=== PATIENT | male | born 1980 | race Caucasian/White ===

== ENCOUNTER 2017-11-19 09:30 | Emergency (ER) | payer MEDICAID ==
[~2017-11-19] VITALS: Ht 167.6 cm; Wt 63.5 kg
[~2017-11-19 09:30] MED LIST: ALPRAZOLAM1 MG PO; CARVEDILOL3.125 MG PO; CIPROFLOXACIN500 M1 PO; CLONIDINE0.1 PO; CYCLOPHOSPHAMID50 MG PO; DARVOCET-N 1001 EACH PO; ELOCON15 GM TP; IBUPROFEN 800800 MG PO; KEFLEX500 MG PO; LASIX 40 MG TAB40 M2 PO; LASIX 80 MG TAB80 MG PO; LEVAQUIN 500 M500 M2 PO; LORTAB 5 MG/5001 TAB PO; NEPHROCAPS SOFT1 CAP PO; NEURONTIN800 MG PO; NOHOMEMEDICATIONS; NORVASC5 MG PO; OXYCODONE HCL 55 MG PO; OXYCONTIN20 M1 PO; PHOSLO667 M1 PO; PHOSLO667 MG PO; POTASSIUM20 PO; PREDNISONE 20 M20 M1 PO; PREDNISONE 20 M20 MG PO; PROBIOTIC1 EAC1 PO; TRINATE TABLET1 TAB PO; TYLENOL325 MG PO; VIRT-CAPS SOFTGE1 MG PO; XANAX1 MG PO; ZYVOX600 MG PO
[2017-11-19] MEDS ORDERED: PHOS FLUR PO (09:38)
[2017-11-19] MEDS ORDERED: COREG CR10 MG PO (09:39)
[2017-11-19] MEDS ORDERED: VIRT-GARD TABL1 EACH PO (09:39)
[2017-11-19] MEDS ORDERED: KLOR-CON 1010 MEQ PO (09:39)
[2017-11-19 10:32] LABS: ABSOLUTE EOSINOPHILS 0.1 thou/uL (0.0-0.7); ABSOLUTE LYMPHOCYTES 1.8 thou/uL (0.8-5.3); ABSOLUTE MONOCYTES 0.2 thou/uL (0.0-1.2); ABSOLUTE NEUTROPHILS 4.1 thou/uL (1.6-8.1); BASOPHILS 0.6 %; HEMATOCRIT 43.3 % (42.0-52.0); HEMOGLOBIN 14.5 gm/dL (14.0-18.0); LYMPHOCYTES 28.2 %; MCH 29.9 pg (26.0-34.0); MCHC 33.5 g/dL (28.0-37.0); MCV 89.1 fL (80.0-100.0); MONOCYTES 3.5 %; MPV 8.3 fl. (7.2-11.1); NUCLEATED RBCS 0 /100WBC; PLATELET COUNT* 138 thou/uL (150-400); POLYS 65.7 %; RBC 4.86 mil/uL (4.50-6.00); RDW-CV 14.3 % (10.5-14.5); WBC 6.2 thou/uL (4.0-11.0)
[2017-11-19 10:39] LABS: CALCIUM 9.5 mg/dL (8.5-10.1); CREATININE 5.3 mg/dL (0.6-1.3); POTASSIUM 5.7 mmol/L (3.5-5.1)
[2017-11-19 10:41] LABS: APTT 26.4 Seconds (25.0-31.3); PROTIME 9.5 Seconds (9.20-11.50)
[2017-11-19 10:44] LABS: ALBUMIN 3.6 g/dL (3.4-5.0); TOTAL BILIRUBIN 0.2 mg/dL (<0.1-1.0); TOTAL PROTEIN 7.3 g/dL (6.4-8.2)
[2017-11-19 11:09] VITALS: BP 136/81
== END 2017-11-19 11:09 | disposition home or self-care (01) ==
LOC: M.ERS 09:30
PROVIDERS: Personal Emergency Response Attendant
DX: Z00.00 Encounter for general adult medical examination without abnormal findings (principal); G89.29 Other chronic pain; F17.210 Nicotine dependence, cigarettes, uncomplicated; N05.9 Unspecified nephritic syndrome with unspecified morphologic changes; Z86.2 Personal history of diseases of the blood and blood-forming organs and certain disorders involving the immune mechanism; Z88.5 Allergy status to narcotic agent

== ENCOUNTER 2017-12-08 08:40 | Emergency (ER) | payer MEDICAID ==
[~2017-12-08] VITALS: Ht 170.2 cm; Wt 63.5 kg
[~2017-12-08 08:40] MED LIST changes: +COREG CR10 MG PO; +KLOR-CON 1010 MEQ PO; +PHOS FLUR PO; +VIRT-GARD TABL1 EACH PO
[2017-12-08 09:13] LABS: ABSOLUTE EOSINOPHILS 0.1 thou/uL (0.0-0.7); ABSOLUTE LYMPHOCYTES 1.6 thou/uL (0.8-5.3); ABSOLUTE MONOCYTES 0.2 thou/uL (0.0-1.2); ABSOLUTE NEUTROPHILS 3.6 thou/uL (1.6-8.1); BASOPHILS 0.8 %; EOSINOPHILS 2.3 %; HEMATOCRIT 39.4 % (42.0-52.0); HEMOGLOBIN 13.3 gm/dL (14.0-18.0); LYMPHOCYTES 28.3 %; MCH 29.5 pg (26.0-34.0); MCHC 33.6 g/dL (28.0-37.0); MCV 87.7 fL (80.0-100.0); MONOCYTES 4.2 %; MPV 8.7 fl. (7.2-11.1); NUCLEATED RBCS 0 /100WBC; PLATELET COUNT* 190 thou/uL (150-400); POLYS 64.4 %; RBC 4.49 mil/uL (4.50-6.00); RDW-CV 15.2 % (10.5-14.5); WBC 5.6 thou/uL (4.0-11.0)
[2017-12-08 09:16] LABS: PROTIME 9.7 Seconds (9.20-11.50)
[2017-12-08 09:17] LABS: CALCIUM 8.9 mg/dL (8.5-10.1); CREATININE 4.8 mg/dL (0.6-1.3); POTASSIUM 4.2 mmol/L (3.5-5.1)
[2017-12-08 09:22] LABS: ALBUMIN 3.6 g/dL (3.4-5.0); MAGNESIUM 2.3 mg/dL (1.8-2.4); TOTAL BILIRUBIN 0.4 mg/dL (<0.1-1.0); TOTAL PROTEIN 7.4 g/dL (6.4-8.2)
[2017-12-08 09:36] VITALS: BP 142/84
== END 2017-12-08 09:36 | disposition home or self-care (01) ==
LOC: M.ERS 08:40
PROVIDERS: Emergency Medicine
DX: Z76.89 Persons encountering health services in other specified circumstances (principal); F17.210 Nicotine dependence, cigarettes, uncomplicated; Z88.5 Allergy status to narcotic agent

== ENCOUNTER 2018-02-04 10:12 | Inpatient (IN) | payer MEDICAID ==
[~2018-02-04] VITALS: Ht 170.2 cm; Wt 60.8 kg
[2018-02-04 10:38] VITALS: BP 111/64
[2018-02-04] MEDS ORDERED: KEFLEX500 M2 PO (10:42)
[2018-02-04] MEDS ORDERED: OXYCONTIN10 M1 PO (10:42)
[2018-02-04] MEDS ORDERED: XANAX 0.5 MG0.5 MG PO (10:42)
[2018-02-04 11:17] LABS: ABSOLUTE EOSINOPHILS 0.2 thou/uL (0.0-0.7); ABSOLUTE LYMPHOCYTES 1.1 thou/uL (0.8-5.3); ABSOLUTE MONOCYTES 0.4 thou/uL (0.0-1.2); ABSOLUTE NEUTROPHILS 3.4 thou/uL (1.6-8.1); BASOPHILS 0.8 %; EOSINOPHILS 3.9 %; HEMATOCRIT 27.4 % (42.0-52.0); HEMOGLOBIN 9.4 gm/dL (14.0-18.0); LYMPHOCYTES 21.2 %; MCH 31.8 pg (26.0-34.0); MCHC 34.5 g/dL (28.0-37.0); MCV 92.2 fL (80.0-100.0); MONOCYTES 7.1 %; MPV 8.4 fl. (7.2-11.1); NUCLEATED RBCS 0 /100WBC; PLATELET COUNT* 177 thou/uL (150-400); RBC 2.97 mil/uL (4.50-6.00); RDW-CV 13.6 % (10.5-14.5); WBC 5.1 thou/uL (4.0-11.0)
[2018-02-04 11:25] LABS: PROTIME 9.8 Seconds (9.20-11.50)
[2018-02-04 11:29] LABS: ANION GAP 7 mmol/L (7-16); BUN 26 mg/dL (7-18); CALCIUM 8.8 mg/dL (8.5-10.1); CHLORIDE 107 mmol/L (98-107); CO2 27 mmol/L (21-32); CREATININE 4.3 mg/dL (0.6-1.3); GLUCOSE 89 mg/dL (70-99); POTASSIUM 3.7 mmol/L (3.5-5.1); SODIUM 141 mmol/L (136-145)
[2018-02-04 11:38] LABS: ALBUMIN 3.3 g/dL (3.4-5.0); ALKALINE PHOSPHATASE 106 U/L (46-116); LIPASE 239 U/L (73-393); NT-PRO BRAIN NAT PEPTIDE 926 pg/mL (<300); SGOT 13 U/L (15-37); SGPT 16 U/L (30-65); TOTAL BILIRUBIN 0.2 mg/dL (<0.1-1.0); TOTAL PROTEIN 6.9 g/dL (6.4-8.2); TROPONIN-I LEVEL <0.06 ng/mL (<0.06)
[2018-02-04 15:10] VITALS: BP 111/66
[2018-02-04 15:30] VITALS: BP 116/75
--- NOTE | 2018-02-04 19:01 | NUR ---
RECEIVED REPORT AND ASSUMED CARE AT 1525. PT TRANSFERED FROM ER TO ROOM 211. VSS. CARDIAC MONITORING IN PLACE. ASSESSMENT COMPLETED CHARTED. PT REPORTS PAIN L CHEST AT SITE OF INFECTED TDC. CONSULTED NEPHROLOGY, VASCULAR, INFECTIOUS DISEASE. TDC REMOVED BY BACKUP ADMINISTRATOR AT BEDSIDE, LIDOCAINE ADMINISTERED TO SITE PRIOR TO PROCEDURE. CULTURE OF TDC AND MRSA OF NARES SENT TO LAB. CATH TIP SENT TO LAB FOR CULTURE. INSERTION OF NEW DIALYSIS CATH SCHEDULED FOR 02/05/18. CONSENT SIGNED AND ON CHART. PT UP AD AVERY IN ROOM. PT ON RA. PT WILL NEED TO BE NPO AT MIDNIGHT FOR PROCEDURE. CASE MANAGEMENT CONSULTED PER PT REQUEST R/T LIMITED RESOURCES R/T MANAGEMENT OF CARE FOR DISEASE PROCESS. DISCUSSED PLAN OF CARE WITH PT, VERBALIZED UNDERSTANDING. WILL CONTINUE TO MONITOR FOR REMAINDER OF SHIFT
[2018-02-04 20:00] VITALS: BP 129/82
[2018-02-05] VITALS: BP 111/64
[2018-02-05 03:00] VITALS: BP 104/65
--- NOTE | 2018-02-05 04:33 | NUR ---
RECIEVED REPORT AND ASSUMED CARE OF PATIENT AT 1930. ETCHER ELECTROLYTIC IN PLACE TRACING SR. ASSESSMENT AND VITALS COMPLETED CHARTED, VSS. PATIENT A&0X4. PATIENT HAD C/O PAIN IN BACK RATED 7/10 PARTIALLY RELIEVED WITH OXYCONTIN. PATIENT STATES THIS PAIN IS CHRONIC AND IS NEVER FULLY RELIEVED. PATIENT TOOK A SHOWER BEFORE BED AND HAS SLEPT A MAJORITY OF THIS SHIFT. PATIENT NPO FOR DIALYSIS CATHETER PLACEMENT TODAY. HOURLY ROUNDING OBSERVED. CALL LIGHT WITHIN REACH
[2018-02-05 05:44] LABS: HEMATOCRIT 25.6 % (42.0-52.0); HEMOGLOBIN 8.9 gm/dL (14.0-18.0); MCH 31.9 pg (26.0-34.0); MCHC 34.8 g/dL (28.0-37.0); MCV 91.6 fL (80.0-100.0); MPV 8.8 fl. (7.2-11.1); RBC 2.8 mil/uL (4.50-6.00); RDW-CV 13.6 % (10.5-14.5); WBC 3.7 thou/uL (4.0-11.0)
[2018-02-05 06:22] LABS: ALBUMIN 3.1 g/dL (3.4-5.0); CALCIUM 8.8 mg/dL (8.5-10.1); CREATININE 4.2 mg/dL (0.6-1.3); POTASSIUM 3.8 mmol/L (3.5-5.1); TOTAL BILIRUBIN 0.1 mg/dL (<0.1-1.0); TOTAL PROTEIN 6.1 g/dL (6.4-8.2)
--- NOTE | 2018-02-05 06:45 | CON ---
[address] [address] CONSULTATION Name: BUTTERFIELDEMMA JOE Room: [address] IN M.R.#: [id number] Admission: 02/04/18 Attend Phys: Shalom Nash MD Discharge: Date of : 81 Report #: [id number] THIS REPORT FOR: //name// CC: [facility] physician/PCP Shalom Nash DATE OF SERVICE: 02/04/2018 INFECTIOUS DISEASE CONSULTATION ATTENDING PHYSICIAN: Shalom Nash M.D. REASON FOR EVALUATION: Infected dialysis (tunneled catheter). HISTORY OF PRESENT ILLNESS: Chart reviewed, the patient examined. This is a 37-year old whom I am actually familiar with history of nephrotic syndrome and has been complicated by end-stage renal disease with requirement of hemodialysis, received thrice weekly. He has had history of infected catheters with Staphylococcus well as streptococcal septicemia, last known history was in July of 2017. He noted over the course of the last couple of weeks had increasing redness and subsequently developed pain over the site. There was some purulent drainage over the course of the last 24-48 hours, luckily there was not any fevers. Denies any chills, shakes or sweats. Appetite has been generally good. No pulmonary or gastrointestinal related complaints. Admitted post-dialysis due to concerns, removal of catheter, which is done at the bedside. Did receive a dose of ceftriaxone and vancomycin. ALLERGIES: To HYDROCODONE. MEDICATIONS: Oxycodone, promethazine, ondansetron, melatonin, diphenhydramine, vancomycin, and ceftriaxone. PAST MEDICAL HISTORY: History of nephrotic syndrome, glomerulonephritis, chronic back pain, chronic anemia, and anxiety. SOCIAL HISTORY: Nonsmoker. No ethanol. FAMILY HISTORY: Noncontributory. REVIEW OF SYSTEMS: As above. PHYSICAL EXAMINATION: GENERAL: He is pleasant, alert and cooperative, in ddal-na-msagvtfp distress. He is lucid, appears to be generally well nourished. VITAL SIGNS: Temperature 97.8, pulse 99, respirations 14 and blood pressure 111/66[place] [address] CONSULTATION Name: NGUYỄN BUTTERFIELDLAUREN HUYNH Room: [address]#: [id number] Admission: 02/04/18 Attend Phys: Shalom Nash MD Discharge: Date of : 81 Report #: [id number] SKIN: Warm and dry. No rashes. HEENT: Unremarkable. NECK: Supple. CHEST: There is a site of the catheter in the left chest, has been removed. LUNGS: Clear breath sounds. HEART: Regular. Borderline tachycardic. No appreciated murmur. ABDOMEN: Soft, nontender and nondistended. EXTREMITIES: No cyanosis. GENITOURINARY: Deferred. RECTAL: Deferred. RADIOLOGICAL DATA: Chest x-ray, no acute process. LABORATORY DATA: CBC: White count of 5.1, H and H 9.4 and 27.4, and platelets of 177. PT 9.8 and INR 1.0. Electrolytes: Sodium 141, potassium 3.7, chloride 107, bicarbonate 27, BUN and creatinine 26 and 4.3, and glucose of 89. Lipase of 239. LFTs unremarkable. Albumin of 3.3. Total protein 6.9. Lactic acid 0.6. ASSESSMENT AND PLAN: Infected tunneled dialysis catheter. We will await culture results including the tip and he has been dosed with empiric antimicrobial therapy, we would presume a gram-positive etiology and adjust therapy as required, now there will be a period and then replacement of temporary dialysis catheter. We will follow and see how he does clinically. <ELECTRONICALLY SIGNED> By: Reji Vazquez MD 02/05/18 0645 1714 0005Jofarooq Vazquez MD /nt
[2018-02-05 08:15] VITALS: BP 122/85
--- NOTE | 2018-02-05 12:23 | CON ---
[address] [address] CONSULTATION Name: SCOUTEMMA LINO Room: [address] IN M.R.#: [id number] Admission: 02/04/18 Attend Phys: Shalom Nash MD Discharge: Date of : 81 Report #: [id number] THIS REPORT FOR: //name// CC: [facility] physician/PCP Shalom Nash DICTATED BY: Meredith SERRATO DATE OF SERVICE: 02/04/2018 This is Meredith Maria [facility], dictating in collaboration with Dr. Edwin Vallejo. REASON FOR CONSULTATION: Infected tunneled dialysis catheter. HISTORY OF PRESENT ILLNESS: The patient is a 37-year-old male who is well known to our service with a history of end-stage renal disease. He underwent placement of a tunneled dialysis catheter in 06/2016 for the initiation of hemodialysis. He did have a left upper arm graft placed, he believes by Dr. Tariq, in 03/2016. He was seen by our service in 07/2017 for concerns for graft infection. He underwent excision of his left upper extremity brachial axillary arteriovenous graft with repair of the brachial artery on 08/07/[address] Terrence Durham. On 08/11/2017, he underwent placement of a left internal jugular tunneled dialysis catheter. He has been dialyzing via that catheter since that time. He reports he has been planning on getting in for vein mapping for fistula creation, but has not yet scheduled this as an outpatient. He reports that in the last couple of times of dialysis, the nurses noted some redness along his tunneled dialysis catheter site. He reports this has significantly worsened over the past 24 hours. He states he felt febrile, but did not take his temperature at home. He denies any nausea, vomiting or chills. He does dialyze on Tuesdays, and Saturdays. PAST MEDICAL HISTORY: 1. End-stage renal disease. 2. Chronic anemia. 3. Chronic back pain. 4. Membranoproliferative glomerulonephritis. PAST SURGICAL HISTORY: 1. Left upper extremity arteriovenous graft placement with subsequent resection from infection. 2. Tunneled dialysis catheter placement x 2. SOCIAL HISTORY: He is a former smoker. He denies any alcohol [place] [address] CONSULTATION Name: EMMA BUTTERFIELD Room: [address]#: [id number] Admission: 02/04/18 Attend Phys: Shalom Nash MD Discharge: Date of : 82 Report #: [id number] FAMILY HISTORY: Reviewed, noncontributory. ALLERGIES: HYDROCODONE. HOME MEDICATIONS: 1. Cephalexin 500 mg twice daily. 2. OxyContin 10 mg every 12 hours. 3. Xanax 0.5 mg every 8 hours as needed for anxiety. REVIEW OF SYSTEMS: A 12-point review of systems has been reviewed and is negative, except for the above mentioned in the history of present illness. PHYSICAL EXAMINATION: VITAL SIGNS: Temperature 36.6, heart rate 100, respiratory rate 16, blood pressure 111/64 and oxygen saturation 100% on room air. GENERAL: He is alert, oriented, in no acute distress. HEENT: Head is normocephalic, atraumatic. NECK: Supple, without jugular venous distention or carotid bruit. He does have a left internal jugular tunneled dialysis catheter intact. The overlying skin has erythema and edema. There is a scant amount of purulent drainage around the exit site of his tunneled dialysis catheter. HEART: Regular rate and rhythm. CHEST: Lungs are clear to auscultation bilaterally. ABDOMEN: Soft, nontender. Positive bowel sounds in all quadrants. EXTREMITIES: Palpable bilateral radial and pedal pulses. No significant edema noted in his extremities. NEUROLOGIC: Alert and oriented with no focal neurologic deficits. LABORATORY DATA: Hemoglobin 9.4, hematocrit 27.4, white blood cell count 5.1 and platelets 177,000. Sodium 141, potassium 3.7, chloride 107, CO2 of 27, BUN is 26, creatinine 4.6 and glucose is 89. ASSESSMENT AND PLAN: End-stage renal disease, on chronic hemodialysis via a left internal jugular tunneled dialysis catheter. He has an obvious infection of his tunneled dialysis catheter site. The catheter will be removed at the bedside this afternoon. Risks and benefits have been discussed with the patient. He is agreeable. We will plan for placement of a new tunneled dialysis catheter tomorrow with Dr. Edwin Vallejo for continuation of hemodialysis. N.p.o. after midnight. Continue IV antibiotics per Infectious Disease, hemodialysis per Nephrology. He needs to undergo vein mapping for evaluation for new arteriovenous fistula versus graft creation. [address] [address] CONSULTATION Name: EMMA BUTTERFIELD Room: [address] IN M.R.#: [id number] Admission: 02/04/18 Attend Phys: Shalom Nash MD Discharge: Date of : 82 Report #: [id number] Thank you for the opportunity to participate in the care of the patient. Please feel free to contact our office with any questions or concerns. <ELECTRONICALLY SIGNED> By: Edwin Vallejo DO 02/05/18 1223 1712 [id number] Vallejo DO /nt
--- NOTE | 2018-02-05 14:26 | EKG ---
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 02/05/18 1426 1054 1054 Nik Cartwright MD, [facility] /EPI
[2018-02-05 16:00] VITALS: BP 118/69
--- NOTE | 2018-02-05 16:46 | NUR ---
CM SPOKE TO THE PATIENT TO DISCUSS HOME SITUATION, DISCHARGE PLANNING, NEEDS, AND TO INFORM OF THE ROLE OF CM. PATIENT ALERT, ORIENTED, AND INDPENDENT WITH ADL'S. PATIENT RESIDES AT HOME WITH PARENT AND SON. PATIENT IS CURRENT WITH [facility] FOR HD. PATIENT USES 0 DME. PATIENT HAS NO HX OF HH OR SNF. CM WILL REMAIN AVIALABLE TO ASSIST AND FOLLOW NEEDED.
--- NOTE | 2018-02-05 18:33 | NUR ---
PT RESTING IN BED. PT REPORTS PAIN IN LEFT UPPER CHEST/NECK WHERE NEW TDC PLACED THIS AFTERNOON. PRN PAIN MEDICATION ORDERED AND ADMINISTERED. PT SCHEDULED TO HAVE DIALYSIS 02/06/18. PT UP AD AVERY IN ROOM. PT ON RA. BED IN LOWEST POSITION, CALL LIGHT WITHIN REACH. WILL CONTINUE TO [place] FOR REMAINDER OF THE SHIFT
[2018-02-05 20:00] VITALS: BP 110/60
[2018-02-06] VITALS: BP 117/72
--- NOTE | 2018-02-06 05:38 | NUR ---
PATIENT NOT PROGRESSING TOWARDS GOALS: PAIN IN RIGHT CHEST WHERE TUNNELED DIALYSIS CATHETER WAS INSERTED YESTERDAY HAS NOT BEEN EFFECTIVELY MANAGED WITH PRN MEDICATION. PATIENT STATED AT THE BEGINNING OF THE SHIFT THAT HE TOOK 30MG OXCODONE IR AT HOME SO THE 5MG WASN'T TOUCHING HIS PAIN. PHYSICIAN NOTIFIED AND DOSE INCREASED TO 10MG. PATIENT STATES THIS STILL HAS NOT HELPED. PATIENT HAS NOT BEEN ABLE TO SLEEP VERY WELL THROUGHOUT THE NIGHT. PATIENT ENCOURAGED TO REPOSITION FOR COMFORT. HOURLY ROUNDING OSBERVED. CALL LIGHT WITHIN REACH
[2018-02-06 05:51] LABS: HEMATOCRIT 27.2 % (42.0-52.0); HEMOGLOBIN 9.2 gm/dL (14.0-18.0); MCH 31.5 pg (26.0-34.0); MCHC 33.9 g/dL (28.0-37.0); MCV 92.8 fL (80.0-100.0); RBC 2.93 mil/uL (4.50-6.00); RDW-CV 13.7 % (10.5-14.5); WBC 3.9 thou/uL (4.0-11.0)
[2018-02-06 06:14] LABS: CALCIUM 8.8 mg/dL (8.5-10.1); CREATININE 4.3 mg/dL (0.6-1.3); MAGNESIUM 2.6 mg/dL (1.8-2.4); POTASSIUM 4.1 mmol/L (3.5-5.1)
[2018-02-06 07:49] VITALS: BP 113/71
[2018-02-06 08:42] LABS: URINE BILIRUBIN NEGATIVE (Negative); URINE BLOOD 1+ (Negative); URINE CLARITY CLEAR; URINE COLOR YELLOW; URINE GLUCOSE-RANDOM TRACE (Negative); URINE KETONES NEGATIVE (Negative); URINE LEUKOCYTES-REFLEX NEGATIVE (Negative); URINE NITRITE-REFLEX NEGATIVE (Negative); URINE PROTEIN 2+ (Negative); URINE UROBILINOGEN 0.2 E.U./dl (0.2-1.0)
[2018-02-06 09:17] LABS: BACTERIA-REFLEX None Seen /HPF (None Seen); COARSE GRANULAR CASTS 0-3 Few /LPF (None Seen); CRYSTALS None Seen /LPF (None Seen); HYALINE CASTS 0-3 Few /LPF (None Seen); SQUAMOUS NONE SEEN /LPF (0-3)
[2018-02-06 09:18] LABS: URINE RBC 3-10 Few /HPF (0-2); URINE WBC-REFLEX 0-5 Rare /HPF (0-5)
--- NOTE | 2018-02-06 09:39 | NUR ---
ASSUMED CARE OF PATIENT AFTER REPORT THIS MORNING. PATIENT AWAKE, ALERT, AND ORIENTED APPROPRIATELY. PHYSICAL ASSESSMENT COMPLETED AND CHARTED. COMPLAINED OF PAIN. DISCUSSED FREQUENCY AVAILABLE FOR PAIN MEDICATIONS. PATIENT STATED UNDERSTANDING. VITAL SIGNS STABLE. OXYGEN SATURATION WITHIN NORMAL LIMITS ON ROOM AIR. PATIENT TRANSFERS AND AMBULATES INDEPENDENTLY WITHOUT DIFFICULTY. DENIES NEEDS AT THIS TIME. IS WONDERING IF HE WILL HAVE DIALYSIS TODAY. CALL LIGHT WITHIN REACH. NURSING WILL CONTINUE TO MONITOR.
--- NOTE | 2018-02-06 18:13 | NUR ---
NO CHANGE IN PATIENT STATUS. HAD DIALYSIS TODAY. CUT SHORT DUE TO ISSUES WITH NEW DIALYSIS CATHETER. NEPHROLOGY AWARE. PATIENT REMAINS ALERT AND ORIENTED APPROPRIATELY. UP AD AVERY IN ROOM. GIVEN PRN MEDICATIONS FOR PAIN, SEE EMAR FOR DOCUMENTATION. DENIES NEEDS AT THIS TIME. CALL LIGHT WITHIN REACH. NURSING WILL CONTINUE TO MONITOR.
[2018-02-06 20:00] VITALS: BP 117/68
[2018-02-07] VITALS: BP 113/70
[2018-02-07 01:30] VITALS: BP 106/64
--- NOTE | 2018-02-07 07:38 | NUR ---
PATIENT REMAINS STABLE THROUGHOUT SHIFT. PATIENT NOT PROGRESSING TOWARDS GOAL: PAIN HAS BEEN UNRELIEVED WITH PRN MEDICATION, REPOSITIONING, AND RELAXATION TECHNIQUES. PATIENT STATES HE HAS NOT BEEN ABLE TO SLEEP THE PAST TWO NIGHTS DUE TO PAIN. HOURLY ROUNDING OBSERVED. CALL LIGHT WITHIN REACH
[2018-02-07 08:14] VITALS: BP 107/79
--- NOTE | 2018-02-07 08:37 | NUR ---
ASSUMED CARE OF PATIENT AFTER REPORT THIS MORNING. PATIENT AWAKE, ALERT, AND ORIENTED APPROPRIATELY. PHYSICAL ASSESSMENT COMPLETED AND CHARTED. VITAL SIGNS STABLE. OXYGEN SATURATION WITHIN NORMAL LIMITS ON ROOM AIR. PATIENT IS UP AD AVERY. USES CALL LIGHT APPROPRIATELY. DENIES NEEDS AT THIS TIME. CALL LIGHT WITHIN REACH. NURSING WILL CONTINUE TO MONITOR.
--- NOTE | 2018-02-07 13:16 | NUR ---
RECEIVED REPORT FROM KRISTAL AT 1306. PT TO BE TRANSFERRED FROM TELEMETRY TO ROOM 106.
--- NOTE | 2018-02-07 13:19 | NUR ---
TRANSFERRING PATIENT TO JOINT AND SPINE UNIT HE IS MED/SURG STATUS. REPORT CALLED AND GIVEN TO ROSALINO ESPINO. ALL QUESTIONS ANSWERED. PATIENT TRANSPORTED AT THIS TIME TO ROOM 106 VIA WHEELCHAIR.
[2018-02-07 13:30] VITALS: BP 119/69
--- NOTE | 2018-02-07 14:13 | NUR ---
PT ARRIVED TO 106 VIA W/C FROM TELE AT 1319. PT A&O X4, FRIENDLY, SMILING, TALKATIVE. UP INDEPENDENTLY. VSS ON RA, AFEBRILE, PAIN IN RIGHT SHOULDER/NECK AREA R/T NEW DIALYSIS CVC, TENDER, PAINFUL, NO S/S OF INFECTION. PT TO HAVE DIALYSIS TOMORROW AND POSSIBLE D/C HOME IF DIALYSIS IS SUCCESSFUL AND CVC WORKS PROPERLY. PT STILL PRODUCES URINE, URINAL PROVIDED TO MONITOR OUTPUT. RIGHT EJ CATH FOR DIALYSIS PLACED 02/04/18. PT REPORTS CHRONIC LOWER/LUMBAR BACK PAIN. HOURLY ROUNDING TO START, WILL CONTINUE TO MONITOR PT PROGRESS AND STATUS.
--- NOTE | 2018-02-07 15:47 | NUR ---
PT ASSESSMENT FROM TELEMETRY REVIEWED AND AGREED WITH BY THIS NURSE. PT SETTLED IN 106 AND STATES HE IS COMFORTABLE IN ROOM. VSS ON RA. PAIN TO BE MONITORED. WILL CONTINUE TO MONITOR PT STATUS.
[2018-02-07 17:23] VITALS: BP 127/84
[2018-02-07 20:00] VITALS: BP 124/80
--- NOTE | 2018-02-07 20:13 | NUR ---
BEDSIDE REPORT TO HEARING AID SPECIALIST FOR CONTINUED CARES. PT REMAINS STABLE ON RA. PT COOPERATIVE AND FRIENDLY. UP INDEPENDENTLY. DIALYSIS SCHEDULED FOR TOMORROW MORNING, FEBRUARY D/C HOME AFTERWARDS. HOURLY ROUNDING COMPLETED. PT PROGRESSING TOWARDS GOAL.
[2018-02-08 04:44] LABS: HEMATOCRIT 27.5 % (42.0-52.0); HEMOGLOBIN 9.4 gm/dL (14.0-18.0)
[2018-02-08 05:06] LABS: ALBUMIN 3.3 g/dL (3.4-5.0); CALCIUM 8.8 mg/dL (8.5-10.1); CREATININE 4.4 mg/dL (0.6-1.3); PHOSPHORUS* 4.1 mg/dL (2.5-4.9); POTASSIUM 4.3 mmol/L (3.5-5.1)
[2018-02-08 07:45] VITALS: BP 125/77
--- NOTE | 2018-02-08 08:04 | NUR ---
Alert and oriented x 4. Up independently. His L chest has healing dialysis cath area that had staph. RT chest has newe dialysis cath that is red and bruised and slightly red but from previous nurse and patient they say it's improved. He is in good spirits and is going to dialysis today. He had pain med x 1 for lumbar pain.
[2018-02-08] MEDS ORDERED: DICLOXACILLIN250 M1 PO (13:00)
[2018-02-08 13:02] VITALS: BP 125/77
[2018-02-08 13:05] VITALS: BP 125/77
[2018-02-08 13:24] VITALS: BP 125/77
--- NOTE | 2018-02-08 14:31 | NUR ---
PATIENT LEFT UNIT AT 1345. ALERT AND ORIENTED X4. UP AD AVERY DURING AMBULATION. IV DC'D. DENIES NEED FOR PAIN MEDICATION DURING THIS SHIFT. DENIES NAUSEA. PATIENT WAS OFF UNIT IN DIALYSIS MOST OF THE MORNING. DIALYSIS CATHETER IN PLACE AT SC, THERE IS SOME REDDNESS AND BRUISING AROUND CATHETER SITE. ALL PERSONAL ITEMS LEFT WITH PATIENT. DISCHARGE INSTRUCTIONS, PRESCRIPTIONS, AND NEW MEDICATION INFORMATION SENT WITH PATIENT. VSS ON ROOM AIR. HOURLY ROUNDS HAVE BEEN MAINTAINED WHILE ON UNIT. LEFT WITH GRANDMA VIA CAR.
[2018-02-08 14:37] VITALS: BP 125/77
--- NOTE | 2018-02-11 12:43 | OP ---
[address] [address] OPERATIVE REPORT Name: BUTTERFIELDEMMA JOE Room: [address] IN M.R.#: [id number] Admission: 02/04/18 Attend Phys: Shalom Nash MD Discharge: 02/08/18 Date of : 82 Report #: [id number] THIS REPORT FOR: //name// CC: [facility] physician/PCP Shalom Nash DATE OF SERVICE: 02/05/2018 PREOPERATIVE DIAGNOSES: End-stage renal disease, nephrotic syndrome. POSTOPERATIVE DIAGNOSES: End-stage renal disease, nephrotic syndrome. OPERATION: 1. Ultrasound-guided access to the right internal jugular vein. 2. Tunneled dialysis catheter placement. SURGEON: Edwin Vallejo DO. PLANT HEALTH MANAGER: None. ANESTHESIA: Sedation with local for 20 minutes at my discretion, monitoring all vitals. FLUIDS: Less than 100 crystalloid. BLOOD LOSS: 25 mL. IMPLANTS: A Bard Retro 19 cm tunneled dialysis catheter in the right IJ. SPECIMENS: None. COMPLICATIONS: None. FINDINGS: Ultrasound demonstrated the right internal jugular vein to be soft and compressible, suitable for access. The catheter was positioned in the right atrium SVC junction under fluoroscopic guidance. I aspirated and flushed well without issue. CLINICAL HISTORY: The patient is a 37-year-old man with end-stage renal disease from nephrotic syndrome, is currently dialyzing through a left IJ tunneled dialysis catheter. However, this became secondarily infected and required removal. He is in need of a new catheter for dialysis needs. DETAILS OF PROCEDURE: After informed consent was obtained, the patient was taken to the angio suite, placed on the angio bed in supine position. His right neck was prepped and draped in usual sterile fashion. A full timeout was [address] [address] OPERATIVE REPORT Name: BUTTERFIELDEMMA LOONEY Room: [address]#: [id number] Admission: 02/04/18 Attend Phys: Shalom Nash MD Discharge: 02/08/18 Date of : 82 Report #: [id number] performed identifying correct patient and procedure. Next, he was administered sedation by the nurse at my discretion for a total of 20 minutes. The skin and subcutaneous tissues and right neck were anesthetized with local anesthetic. Using ultrasound guidance, the right internal jugular vein was identified, was accessed with an 18 gauge needle. These images were preserved. Using Seldinger technique, a wire was passed under fluoroscopic guidance in the IVC. A small skin incision was made in the right neck. The sheath was then placed over the wire. A second wire was passed under fluoroscopic guidance into the IVC. The tract was then sterilely dilated. The catheter was then passed over the wire, the position of the right atrium SVC junction. The wires and stylets were removed. The right chest wall was anesthetized with local anesthetic, and a small skin incision was made. The tunneler was passed up to the right neck incision. The catheter was attached to the tunneler and tunneled under fluoroscopic guidance to ensure no kinks or twist. The catheter was then tailored to length and both ports were applied. Both ports aspirated and flushed well. Both ports were then packed with concentrated heparin. Catheter was then secured to the chest wall with 3-0 Monocryl suture, and the neck incision was closed with Monocryl suture. Sterile dressing was applied. All sponge, sharp and instrument counts reported correct x 2. He tolerated the procedure well and was transferred back to the recovery in stable condition. The catheter may be used immediately for dialysis needs. <ELECTRONICALLY SIGNED> By: Edwin Vallejo DO 02/11/18 1243 1423 [id number] Vallejo DO /nt
--- NOTE | 2018-02-14 08:58 | CON ---
[facility] [address] [place] [address] CONSULTATION Name: EMAM BUTTERFIELD Room: [address]#: [id number] Admission: 02/04/18 Attend Phys: Shalom Nash MD Discharge: 02/08/18 Date of : 82 Report #: [id number] THIS REPORT FOR: //name// CC: [facility] physician/PCP Shalom Nash DATE OF SERVICE: 02/04/2018 REQUESTING PHYSICIAN: Shalom Nash M.D. REASON FOR CONSULTATION: Assist in providing dialysis. HISTORY OF PRESENT ILLNESS: The patient is a very pleasant 37-year-old gentleman, with medical history significant for end-stage renal disease. He also had an infected graft removed from his left arm 6 months ago and has been undergoing dialysis via left internal jugular vein tunneled dialysis catheter. He was admitted today with a tunneled dialysis catheter infection. He states that he started having pain over it and purulent discharge. His last dialysis was on Thursday. PAST MEDICAL HISTORY: 1. End-stage renal disease. 2. History of nephrotic syndrome. 3. History of thrombocytopenia. 4. History infected left arm graft, status post removal 6 months ago. MEDICATIONS: Prior to admission reviewed. FAMILY HISTORY: Reviewed. SOCIAL HISTORY: Reviewed. PHYSICAL EXAMINATION: GENERAL: Awake, alert, oriented, in no acute distress. VITAL SIGNS: Reviewed. His temperature is 36.6 Celsius, blood pressure 111/66, heart rate 99. HEENT: Pupils are round. NECK: Supple. LUNGS: Clear. CARDIOVASCULAR: Regular rate. ABDOMEN: Soft. EXTREMITIES: Lower extremities, no edema. He has a left internal jugular vein tunneled dialysis catheter in place and there is redness over the tunnel and purulent discharge is expressed through the entry site. [address] [address] CONSULTATION Name: EMMA BUTTERFIELD Room: [address]#: [id number] Admission: 02/04/18 Attend Phys: Shalom Nash MD Discharge: 02/08/18 Date of : 82 Report #: [id number] ASSESSMENT AND PLAN: Infected dialysis catheter, needs to be removed because most likely he has tunneled ascites also infected. In this situation antibiotics usually are not helpful without removal of catheter. So the catheter will be removed and he will have new catheter placed on the other side. We will dialyze him tomorrow. There is no need for dialysis now. He is not fluid overloaded. He is not acidotic. His potassium is 3.7. He still makes a lot of urine. We will follow him with you. <ELECTRONICALLY SIGNED> By: Basilio Carranza MD 02/14/18 0858 1610 0448Alexandalma Carranza MD /MATT
== END 2018-02-08 13:45 | disposition home or self-care (01) | DRG 314 ==
LOC: M.ERS 10:12 → M.TBA-ER 11:47 → M.2W 15:25 → M.ORTHSURG 02-07 13:20
PROVIDERS: Family Medicine; Internal Medicine Nephrology; ADMIT Internal Medicine
PROC: 05PYX3Z Removal of Infusion Device from Upper Vein, External Approach (ICD-10-PCS; principal; 2018-02-04)
PROC: 05HM33Z Insertion of Infusion Device into Right Internal Jugular Vein, Percutaneous Approach (ICD-10-PCS; 2018-02-05)
PROC: B543ZZA Ultrasonography of Right Jugular Veins, Guidance (ICD-10-PCS; 2018-02-05)
PROC: 5A1D70Z Performance of Urinary Filtration, Intermittent, Less than 6 Hours Per Day (ICD-10-PCS; 2018-02-06)
DX: T82.7XXA Infection and inflammatory reaction due to other cardiac and vascular devices, implants and grafts, initial encounter (principal); A41.9 Sepsis, unspecified organism; N18.6 End stage renal disease; Y84.1 Kidney dialysis as the cause of abnormal reaction of the patient, or of later complication, without mention of misadventure at the time of the procedure; G89.29 Other chronic pain; M54.9 Dorsalgia, unspecified; F41.9 Anxiety disorder, unspecified; B95.61 Methicillin susceptible Staphylococcus aureus infection as the cause of diseases classified elsewhere; Z88.5 Allergy status to narcotic agent; Z79.899 Other long term (current) drug therapy; Y92.89 Other specified places as the place of occurrence of the external cause; Z23 Encounter for immunization

== ENCOUNTER 2018-03-11 20:25 | Emergency (ER) | payer MEDICAID ==
[~2018-03-11] VITALS: Ht 170.2 cm; Wt 63.5 kg
[~2018-03-11 20:25] MED LIST changes: +DICLOXACILLIN250 M1 PO; +KEFLEX500 M2 PO; +OXYCONTIN10 M1 PO; +XANAX 0.5 MG0.5 MG PO
[2018-03-11 20:41] VITALS: BP 130/89
[2018-03-11] MEDS ORDERED: PREDNISONE 10 M10 M1 PO (21:11)
[2018-03-11] MEDS ORDERED: VISTARIL 25 MG25 M1 PO (21:11)
== END 2018-03-11 21:17 | disposition home or self-care (01) ==
LOC: M.ERS 20:25
DX: T78.40XA Allergy, unspecified, initial encounter (principal); G89.29 Other chronic pain; M54.9 Dorsalgia, unspecified; F17.210 Nicotine dependence, cigarettes, uncomplicated; Z88.5 Allergy status to narcotic agent; Z88.1 Allergy status to other antibiotic agents; Z86.2 Personal history of diseases of the blood and blood-forming organs and certain disorders involving the immune mechanism; X58.XXXA Exposure to other specified factors, initial encounter

== ENCOUNTER 2018-03-22 12:40 | Emergency (ER) | payer MEDICAID ==
[~2018-03-22] VITALS: Ht 170.2 cm; Wt 65.8 kg
[~2018-03-22 12:40] MED LIST changes: +PREDNISONE 10 M10 M1 PO; +VISTARIL 25 MG25 M1 PO
[2018-03-22 13:38] LABS: ABSOLUTE BASOPHILS 0.1 thou/uL (0.0-0.2); ABSOLUTE EOSINOPHILS 0.1 thou/uL (0.0-0.7); ABSOLUTE LYMPHOCYTES 1.7 thou/uL (0.8-5.3); ABSOLUTE MONOCYTES 0.6 thou/uL (0.0-1.2); ABSOLUTE NEUTROPHILS 6.5 thou/uL (1.6-8.1); BASOPHILS 0.7 %; EOSINOPHILS 1.7 %; HEMATOCRIT 32.9 % (42.0-52.0); HEMOGLOBIN 11.3 gm/dL (14.0-18.0); LYMPHOCYTES 19.1 %; MCHC 34.4 g/dL (28.0-37.0); MCV 93.1 fL (80.0-100.0); MONOCYTES 6.4 %; MPV 8.8 fl. (7.2-11.1); NUCLEATED RBCS 0 /100WBC; PLATELET COUNT* 148 thou/uL (150-400); POLYS 72.1 %; RBC 3.54 mil/uL (4.50-6.00); WBC 8.9 thou/uL (4.0-11.0)
[2018-03-22 13:47] LABS: CALCIUM 8.4 mg/dL (8.5-10.1); CREATININE 4.1 mg/dL (0.6-1.3); POTASSIUM 3.3 mmol/L (3.5-5.1)
[2018-03-22 13:52] LABS: ALBUMIN 3.3 g/dL (3.4-5.0); TOTAL BILIRUBIN 0.3 mg/dL (<0.1-1.0); TOTAL PROTEIN 7.1 g/dL (6.4-8.2)
[2018-03-22 15:10] VITALS: BP 136/91
== END 2018-03-22 15:11 | disposition short-term general hospital (02) ==
LOC: M.ERS 12:40
PROVIDERS: Physician Assistant
DX: M79.601 Pain in right arm (principal); N18.6 End stage renal disease; G89.29 Other chronic pain; M54.9 Dorsalgia, unspecified; Z86.2 Personal history of diseases of the blood and blood-forming organs and certain disorders involving the immune mechanism; Z88.1 Allergy status to other antibiotic agents; Z88.5 Allergy status to narcotic agent

== ENCOUNTER 2018-04-03 11:21 | Inpatient (IN) | payer MEDICAID ==
[~2018-04-03] VITALS: Ht 167.6 cm; Wt 65.8 kg
[2018-04-03 11:38] VITALS: BP 125/65
[2018-04-03] MEDS ORDERED: OXYCONTIN10 M1 PO (11:42)
[2018-04-03 12:01] LABS: HEMATOCRIT 31.7 % (42.0-52.0); HEMOGLOBIN 10.7 gm/dL (14.0-18.0); MCH 31.5 pg (26.0-34.0); MCHC 33.7 g/dL (28.0-37.0); MCV 93.4 fL (80.0-100.0); MPV 7.8 fl. (7.2-11.1); NUCLEATED RBCS 0 /100WBC; PLATELET COUNT* 198 thou/uL (150-400); RDW-CV 13.7 % (10.5-14.5); WBC 13.5 thou/uL (4.0-11.0)
[2018-04-03 12:10] LABS: CALCIUM 8.7 mg/dL (8.5-10.1); CREATININE 3.3 mg/dL (0.6-1.3); POTASSIUM 4.7 mmol/L (3.5-5.1)
[2018-04-03 12:15] LABS: ALBUMIN 3.6 g/dL (3.4-5.0); TOTAL BILIRUBIN 0.4 mg/dL (<0.1-1.0); TOTAL PROTEIN 6.9 g/dL (6.4-8.2)
[2018-04-03 12:39] LABS: ABSOLUTE LYMPHOCYTES 1.4 thou/uL (0.8-5.3); ABSOLUTE MONOCYTES 0.4 thou/uL (0.0-1.2); ABSOLUTE NEUTROPHILS 11.7 thou/uL (1.6-8.1); PLATELET ESTIMATE ADEQUATE
[2018-04-03 14:11] VITALS: BP 123/70
[2018-04-03 16:28] VITALS: BP 124/73
[2018-04-03 20:30] VITALS: BP 127/75
[2018-04-04 00:17] VITALS: BP 123/76
[2018-04-04 04:00] VITALS: BP 101/60
[2018-04-04 04:24] LABS: HEMATOCRIT 27.8 % (42.0-52.0); HEMOGLOBIN 9.4 gm/dL (14.0-18.0); MCH 31.8 pg (26.0-34.0); MCHC 33.9 g/dL (28.0-37.0); MPV 8.4 fl. (7.2-11.1); RBC 2.96 mil/uL (4.50-6.00); RDW-CV 12.9 % (10.5-14.5); WBC 4.6 thou/uL (4.0-11.0)
[2018-04-04 04:44] LABS: CALCIUM 7.9 mg/dL (8.5-10.1); CREATININE 2.6 mg/dL (0.6-1.3); MAGNESIUM 2.1 mg/dL (1.8-2.4); POTASSIUM 3.8 mmol/L (3.5-5.1)
[2018-04-04 09:12] VITALS: BP 115/65
[2018-04-04 16:25] VITALS: BP 104/51
[2018-04-04 20:30] VITALS: BP 126/74
[2018-04-05 02:19] VITALS: BP 115/76
[2018-04-05 03:50] VITALS: BP 107/73
[2018-04-05 05:35] LABS: URINE BILIRUBIN NEGATIVE (Negative); URINE BLOOD 1+ (Negative); URINE CLARITY CLEAR; URINE COLOR YELLOW; URINE GLUCOSE-RANDOM TRACE (Negative); URINE KETONES NEGATIVE (Negative); URINE LEUKOCYTES-REFLEX NEGATIVE (Negative); URINE NITRITE-REFLEX NEGATIVE (Negative); URINE PROTEIN 1+ (Negative); URINE SPECIFIC GRAVITY <= 1.005 (1.005-1.030); URINE UROBILINOGEN 0.2 E.U./dl (0.2-1.0)
[2018-04-05 05:56] LABS: BACTERIA-REFLEX 1-9 Few /HPF (None Seen); CASTS None Seen /LPF (None Seen); MUCUS 4-6 Moderate strn/LPF (None Seen); SQUAMOUS 0-3 Few /LPF (0-3); URINE RBC 3-10 Few /HPF (0-2); URINE WBC-REFLEX 0-5 Rare /HPF (0-5)
[2018-04-05 05:57] LABS: CRYSTALS None Seen /LPF (None Seen)
[2018-04-05 06:39] LABS: HEMATOCRIT 28.6 % (42.0-52.0); HEMOGLOBIN 9.7 gm/dL (14.0-18.0); MCH 31.8 pg (26.0-34.0); MCHC 33.9 g/dL (28.0-37.0); MCV 94.1 fL (80.0-100.0); MPV 8.4 fl. (7.2-11.1); RBC 3.04 mil/uL (4.50-6.00); RDW-CV 13.4 % (10.5-14.5); WBC 3.9 thou/uL (4.0-11.0)
[2018-04-05 06:50] LABS: CALCIUM 8.5 mg/dL (8.5-10.1); CREATININE 3.3 mg/dL (0.6-1.3); MAGNESIUM 2.2 mg/dL (1.8-2.4); POTASSIUM 4.1 mmol/L (3.5-5.1); TOTAL BILIRUBIN 0.3 mg/dL (<0.1-1.0); TOTAL PROTEIN 6.1 g/dL (6.4-8.2)
[2018-04-05 08:00] VITALS: BP 115/80
[2018-04-05 16:15] VITALS: BP 125/79
--- NOTE | 2018-04-05 17:27 | 2DMMODE ---
[place] [address] 2 D/M-MODE ECHOCARDIOGRAM Name: EMMA BUTTERFIELD Room: [address] IN [facility]#: [id number] Admission: 04/03/18 Attend Phys: Hosea Sterling Discharge: Date of : 82 Date of Service: 04/05/18 1726 Report #: [id number] THIS REPORT FOR: //name// APPROVED REPORT Study performed: 04/05/2018 15:32:09 EXAM: Comprehensive 2D, Doppler, and color-flow Echocardiogram Patient Location: In-Patient Room #: 108 Status: routine BSA: 1.74 HR: 67 bpm BP: 107/73 mmHg Rhythm: NSR Other Information Study Quality: Excellent Indications Possible endocarditis 2D Dimensions LVEF(%): 53.78 (>50%) IVSd: 10.04 (7-11mm) LVOT Diam: 18.97 (18-24mm) LVDd: 40.09 mm PWd: 10.99 (7-11mm) Ascending Ao: 25.06 (22-36mm) LVDs: 29.12 (25-40mm) Aortic Root: 29.77 mm White's LVEF: 53.78 % Volumes Left Atrial Volume (Systole) LA ESV Index: 22.40 mL/m2 Aortic Valve AoV Peak Alireza.: 1.57 m/s AO Peak Gr.: 9.87 mmHg LVOT Max P.97 mmHg AO Mean Gr.: 6.20 mmHg LVOT Mean P.86 mmHg LVOT Max V: 1.58 m/s AO V2 VTI: 29.78 cm LVOT Mean V: 1.01 m/s JONATHAN (VTI): 2.71 cm2 LVOT V1 VTI: 28.55 cm Mitral Valve E/A Ratio: 1.62 [place] [address] 2 D/M-MODE ECHOCARDIOGRAM Name: EMMA BUTTERFIELD Room: [address] IN .R.#: [id number] Admission: 04/03/18 Attend Phys: Hosea Sterling Discharge: Date of : 82 Date of Service: 04/05/18 1726 Report #: [id number] MV Decel. Time: 240.35 ms MV E Max Alireza.: 1.13 m/s MV PHT: 69.70 ms MVA (PHT): 3.16 cm2 TDI E/Lateral E': 7.06 E/Medial E': 9.42 Medial E' Alireza.: 0.12 m/s Lateral E' Alireza.: 0.16 m/s Pulmonary Valve PV Peak Alireza.: 1.19 m/s PV Peak Gr.: 5.68 mmHg Left Ventricle The left ventricle is normal size. There is normal LV segmental wall motion. There is normal left ventricular wall thickness. Left ventricular systolic function is normal. The left ventricular ejection fraction is within the normal range. LVEF is 55-60%. The left ventricular diastolic function is normal. Right Ventricle The right ventricle is normal size. The right ventricular systolic function is normal. Atria The left atrium size is normal. The right atrium size is normal. Aortic Valve The aortic valve is normal in structure. No aortic regurgitation is present. There is no aortic valvular stenosis. Mitral Valve The mitral valve is normal in structure. There is no mitral valve regurgitation noted. No evidence of mitral valve stenosis. Tricuspid Valve The tricuspid valve is normal in structure. Unable to assess PA pressure. Trace tricuspid regurgitation. Pulmonic Valve Pulmonic valve is not well visualized. There is no pulmonic valvular regurgitation. Great Vessels The aortic root is normal in size. IVC [place] [address] 2 D/M-MODE ECHOCARDIOGRAM Name: EMMA BUTTERFIELD Room: [address] IN M.R.#: [id number] Admission: 04/03/18 Attend Phys: Hosea Sterling Discharge: Date of : 82 Date of Service: 04/05/18 1726 Report #: [id number] collapses with >50% inspiration Pericardium There is no pericardial effusion. <Conclusion> Left ventricular systolic function is normal. The left ventricular ejection fraction is within the normal range. <ELECTRONICALLY SIGNED> By: Sergo Araiza MD, [facility] 04/05/181725 25 25 Sergo Araiza MD, FAC /INF
[2018-04-05 21:00] VITALS: BP 120/71
[2018-04-05 21:11] LABS: HEPATITIS B SURFACE AG Negative (Negative)
[2018-04-06 08:58] VITALS: BP 114/69
[2018-04-06 16:00] VITALS: BP 106/63
[2018-04-06 20:00] VITALS: BP 107/67
[2018-04-07 08:30] VITALS: BP 100/61
[2018-04-07] MEDS ORDERED: ZYVOX600 MG PO (10:00)
[2018-04-07 13:20] VITALS: BP 100/61
[2018-04-07 15:36] VITALS: BP 100/61
[2018-04-07] MEDS ORDERED: VANCOMYCIN1 GM/1001 IV (15:54)
[2018-04-07 15:57] VITALS: BP 100/61
[2018-04-07 17:00] VITALS: BP 100/61
--- NOTE | 2018-04-14 08:58 | CON ---
[address] [address] CONSULTATION Name: NGUYỄN BUTTERFIELDLAUREN TORRESE Room: [address] IN M.R.#: [id number] Admission: 04/03/18 Attend Phys: Hosea Velasco, Discharge: 04/07/18 Date of : 82 Report #: [id number] THIS REPORT FOR: //name// CC: TORI physician/PCP Hosea Velasco DATE OF SERVICE: 04/04/2018 REASON FOR CONSULTATION: Cellulitis, right upper extremity AV graft. HISTORY OF PRESENT ILLNESS: The patient is a 37-year-old male well known to me for a left upper extremity AV fistula, which eventually failed due to infiltration at dialysis. The patient has recently undergone a right upper extremity AV graft by Dr. Tariq. He states that ever since that time, it has been red near the anastomosis. This has not been used for dialysis yet. He is currently using a tunneled dialysis catheter of his right internal jugular vein. He reports initially 2 days ago, he did have some fever but that was broke and he is overall feeling better and well. He is in no pain or symptoms related to his catheter. PAST MEDICAL HISTORY: Significant for end-stage renal disease, requiring hemodialysis and diabetes mellitus. PAST SURGICAL HISTORY: Significantly for fistulas with the fistula revisions and fistulogram. FAMILY HISTORY: Reviewed and noncontributory. SOCIAL HISTORY: The patient does have a history of smoking. Denies recreational drug abuse ever. He does use alcohol on occasion. ALLERGIES: HYDROCODONE CAUSES A RASH. REVIEW OF SYSTEMS: Twelve-point review of systems is negative except as in HPI. PHYSICAL EXAMINATION: VITAL SIGNS: Afebrile. Vital signs stable. T-max 36.7 degrees Celsius. GENERAL: The patient is in no acute distress, alert and oriented x 3. HEENT: Head is normocephalic, atraumatic. Extraocular muscles intact. Pupils equal, round, react to light and accommodation. Sclerae white, nonicteric. NECK: Supple. No thyromegaly. No mass, no lymphadenopathy. HEART: Regular rate and rhythm. LUNGS: Clear. ABDOMEN: Soft, nondistended, nontender to palpation. EXTREMITIES: Focused exam of his right upper extremity demonstrates an area of cellulitis and erythema overlying his graft [place] [address] CONSULTATION Name: EMMA BUTTERFIELD Room: [address]#: [id number] Admission: 04/03/18 Attend Phys: Hosea Velasco, Discharge: 04/07/18 Date of : 82 Report #: [id number] of his antecubital fossa. There is no significant fluctuance to this area. It is blanchable erythema. Does not appear to extend throughout the entire graft. His tunneled dialysis catheter appears to be intact without any surrounding erythema and is nontender to palpation. IMAGING: I reviewed his duplex, which does demonstrate a 3.8 x 1.2 cm area, which does not appear to be a pseudoaneurysm or any disruption of the fistula. His fluid collection is complex and likely represents hematoma. IMPRESSION AND PLAN: The patient is a 37-year-old male with end-stage renal disease requiring hemodialysis with a right upper extremity arteriovenous graft. There may be an infection of this hematoma near the anastomosis. I would recommend IV antibiotics at this time and this will likely need to be continued for several weeks at dialysis. If no systemic signs of infection and it continues to improve, his graft may be able to be salvaged. He also may require revision using Artegraft or CryoVein and attempted salvage if worsens or if he develops systemic symptoms. From my standpoint, he can be discharged if medically fit with close followup with either our group or Dr. Tariq who placed this graft in a week or 2. Thank you for allowing me to participate in this patient's care. Please do not hesitate to call should you have further questions or concerns. <ELECTRONICALLY SIGNED> By: Jeronimo Maxwell DO 04/14/18 0858 1537 1600Jeronimo Maxwell DO /nt
== END 2018-04-07 17:00 | disposition home or self-care (01) | DRG 314 ==
LOC: M.ERS 11:21 → M.TBA-ER 13:27 → M.ORTHSURG 13:27
PROVIDERS: Physician Assistant; ADMIT Family Medicine
PROC: 5A1D70Z Performance of Urinary Filtration, Intermittent, Less than 6 Hours Per Day (ICD-10-PCS; principal; 2018-04-07)
DX: T82.7XXA Infection and inflammatory reaction due to other cardiac and vascular devices, implants and grafts, initial encounter (principal); N18.6 End stage renal disease; L03.113 Cellulitis of right upper limb; N17.9 Acute kidney failure, unspecified; Z88.8 Allergy status to other drugs, medicaments and biological substances; F17.210 Nicotine dependence, cigarettes, uncomplicated; Z86.14 Personal history of Methicillin resistant Staphylococcus aureus infection; D63.1 Anemia in chronic kidney disease; E87.5 Hyperkalemia; G89.29 Other chronic pain; R74.0 Nonspecific elevation of levels of transaminase and lactic acid dehydrogenase [LDH]; Z99.2 Dependence on renal dialysis

== ENCOUNTER → 2018-05-04 | Outpatient (CLI) | payer MEDICAID ==
[~2018-05-04] MED LIST changes: +VANCOMYCIN1 GM/1001 IV; +XANAX 0.25 MG0.25 MG PO
[2018-05-04 12:40] LABS: CALCIUM 8.8 mg/dL (8.5-10.1); CREATININE 4.2 mg/dL (0.6-1.3)
== END ==
LOC: M.LAB 11:58
PROVIDERS: Internal Medicine Nephrology
DX: N18.6 End stage renal disease (principal)

== ENCOUNTER → 2018-07-21 | Outpatient (CLI) | payer MEDICAID ==
[2018-07-21 17:32] LABS: CALCIUM 9.8 mg/dL (8.5-10.1); CREATININE 3.1 mg/dL (0.6-1.3); POTASSIUM 3.8 mmol/L (3.5-5.1)
== END ==
LOC: M.LAB 16:56
PROVIDERS: Internal Medicine Nephrology
DX: N18.6 End stage renal disease (principal)

== ENCOUNTER 2018-07-24 10:34 | Emergency (ER) | payer MEDICAID ==
[~2018-07-24] VITALS: Ht 167.6 cm; Wt 59.0 kg
[~2018-07-24 10:34] MED LIST changes: -XANAX 0.25 MG0.25 MG PO
[2018-07-24 10:43] VITALS: BP 143/90
[2018-07-24] MEDS ORDERED: XANAX 0.25 MG0.25 MG PO (10:46)
== END 2018-07-24 11:00 | disposition left against medical advice (07) ==
LOC: M.ERS 10:34
DX: N18.6 End stage renal disease (principal); Z99.2 Dependence on renal dialysis; M54.9 Dorsalgia, unspecified; G89.29 Other chronic pain; F41.9 Anxiety disorder, unspecified; F17.210 Nicotine dependence, cigarettes, uncomplicated; Z88.0 Allergy status to penicillin; Z88.1 Allergy status to other antibiotic agents; Z88.5 Allergy status to narcotic agent

== ENCOUNTER → 2018-07-29 | Outpatient (CLI) | payer MEDICAID ==
[~2018-07-29] MED LIST changes: +XANAX 0.25 MG0.25 MG PO
[2018-07-29 10:30] LABS: CALCIUM 9.5 mg/dL (8.5-10.1); CREATININE 2.8 mg/dL (0.6-1.3); POTASSIUM 4.3 mmol/L (3.5-5.1)
== END ==
LOC: M.LAB 10:01
PROVIDERS: Internal Medicine Nephrology
DX: I12.0 Hypertensive chronic kidney disease with stage 5 chronic kidney disease or end stage renal disease (principal); N18.6 End stage renal disease; Z99.2 Dependence on renal dialysis

== ENCOUNTER → 2018-08-03 | Outpatient (CLI) | payer MEDICAID ==
[2018-08-03 11:28] LABS: CALCIUM 8.9 mg/dL (8.5-10.1); CREATININE 3.1 mg/dL (0.6-1.3); POTASSIUM 3.8 mmol/L (3.5-5.1)
== END ==
LOC: M.LAB 10:55
PROVIDERS: Internal Medicine Nephrology
DX: I12.0 Hypertensive chronic kidney disease with stage 5 chronic kidney disease or end stage renal disease (principal); N18.6 End stage renal disease; Z99.2 Dependence on renal dialysis

== ENCOUNTER 2018-10-29 12:43 | Inpatient (IN) | payer MEDICARE, MEDICAID ==
[~2018-10-29] VITALS: Ht 167.6 cm; Wt 61.2 kg
[2018-10-29 12:55] VITALS: BP 147/95
[2018-10-29 13:46] LABS: ABSOLUTE EOSINOPHILS 0.1 thou/uL (0.0-0.7); ABSOLUTE MONOCYTES 0.6 thou/uL (0.0-1.2); ABSOLUTE NEUTROPHILS 6.2 thou/uL (1.6-8.1); BASOPHILS 0.4 %; EOSINOPHILS 1.1 %; HEMATOCRIT 40.6 % (42.0-52.0); HEMOGLOBIN 13.8 gm/dL (14.0-18.0); LYMPHOCYTES 12.6 %; MCH 31.3 pg (26.0-34.0); MCHC 34.1 g/dL (28.0-37.0); MONOCYTES 8.1 %; MPV 9.4 fl. (7.2-11.1); NUCLEATED RBCS 0 /100WBC; PLATELET COUNT* 139 thou/uL (150-400); POLYS 77.8 %; RBC 4.42 mil/uL (4.50-6.00); RDW-CV 12.4 % (10.5-14.5); WBC 7.9 thou/uL (4.0-11.0)
[2018-10-29 14:05] LABS: CALCIUM 9.3 mg/dL (8.5-10.1); CREATININE 3.6 mg/dL (0.6-1.3)
[2018-10-29 14:10] LABS: ALBUMIN 3.5 g/dL (3.4-5.0); TOTAL BILIRUBIN 0.3 mg/dL (<0.1-1.0); TOTAL PROTEIN 7.5 g/dL (6.4-8.2)
[2018-10-29 14:34] LABS: URINE BILIRUBIN NEGATIVE (Negative); URINE BLOOD 3+ (Negative); URINE CLARITY CLEAR; URINE COLOR YELLOW; URINE GLUCOSE-RANDOM NEGATIVE (Negative); URINE KETONES NEGATIVE (Negative); URINE LEUKOCYTES-REFLEX NEGATIVE (Negative); URINE NITRITE-REFLEX NEGATIVE (Negative); URINE PROTEIN 2+ (Negative); URINE UROBILINOGEN 0.2 E.U./dl (0.2-1.0)
[2018-10-29 14:42] LABS: AMP/METHAMP Negative (Negative); BARBITURATES Negative (Negative); BENZODIAZEPINES POSITIVE (Negative); COCAINE Negative (Negative); METHADONE Negative (Negative); OPIATES POSITIVE (Negative); PCP Negative (Negative); THC Negative (Negative)
[2018-10-29 14:52] LABS: BACTERIA-REFLEX None Seen /HPF (None Seen); CASTS None Seen /LPF (None Seen); CRYSTALS None Seen /LPF (None Seen); SQUAMOUS 0-3 Few /LPF (0-3); URINE RBC >20 Many /HPF (0-2); URINE WBC-REFLEX None Seen /HPF (0-5); YEAST-REFLEX Present (None Seen)
[2018-10-29 15:06] VITALS: BP 147/95
--- NOTE | 2018-10-29 16:00 | NUR ---
ADMIT NOTE - PT ADMITTED TO 304 WITH RIGHT UPPER ARM CELLULITIS FROM OLD AV FISTULA. IV PRESENT IN L AC 20G. ORIENTED TO PHONE AND CALL LIGHT SYSTEM. WILL CONTINUE TO MONITOR.
== END 2018-10-29 19:30 | disposition left against medical advice (07) | DRG 602 ==
LOC: M.ERS 12:43 → M.TBA-ER 13:18 → M.3W 15:03
PROVIDERS: Physician Assistant; ADMIT Internal Medicine
DX: L03.113 Cellulitis of right upper limb (principal); N18.6 End stage renal disease; N04.9 Nephrotic syndrome with unspecified morphologic changes; N17.9 Acute kidney failure, unspecified; F17.210 Nicotine dependence, cigarettes, uncomplicated; Z53.21 Procedure and treatment not carried out due to patient leaving prior to being seen by health care provider; F41.9 Anxiety disorder, unspecified; G89.29 Other chronic pain; M54.9 Dorsalgia, unspecified; Z88.6 Allergy status to analgesic agent; Z88.1 Allergy status to other antibiotic agents; Z88.0 Allergy status to penicillin; Z88.8 Allergy status to other drugs, medicaments and biological substances

== ENCOUNTER → 2019-01-27 | Outpatient (CLI) | payer MEDICARE, MEDICAID ==
[2019-01-27 12:38] LABS: HEMATOCRIT 40.4 % (42.0-52.0); HEMOGLOBIN 13.7 gm/dL (14.0-18.0)
[2019-01-27 12:50] LABS: ALBUMIN 3.7 g/dL (3.4-5.0); CALCIUM 9.1 mg/dL (8.5-10.1); CREATININE 2.6 mg/dL (0.6-1.3); POTASSIUM 4.4 mmol/L (3.5-5.1); TOTAL BILIRUBIN 0.2 mg/dL (<0.1-1.0); TOTAL PROTEIN 7.3 g/dL (6.4-8.2)
[2019-01-27 12:53] LABS: CALCIUM 9.1 mg/dL (8.5-10.1); CREATININE 2.6 mg/dL (0.6-1.3); PHOSPHORUS* 3.1 mg/dL (2.5-4.9)
== END ==
LOC: M.LAB 12:01
PROVIDERS: Nurse Practitioner Family
DX: I12.9 Hypertensive chronic kidney disease with stage 1 through stage 4 chronic kidney disease, or unspecified chronic kidney disease (principal); N18.4 Chronic kidney disease, stage 4 (severe)

== ENCOUNTER 2019-08-08 10:21 | Emergency (ER) | payer MEDICARE, MEDICAID ==
[~2019-08-08] VITALS: Ht 167.6 cm; Wt 59.0 kg
[2019-08-08] MEDS ORDERED: MULTIVITAMINS1 EAC7 PO (10:29)
[2019-08-08] MEDS ORDERED: MAGIC MOUTHWASH SWISH&SPIT (10:39)
[2019-08-08] MEDS ORDERED: BACTRIM DS TAB1 EACH PO (10:39)
[2019-08-08] MEDS ORDERED: TRAMADOL 50 MG50 MG PO (10:39)
[2019-08-08 10:46] VITALS: BP 149/95
== END 2019-08-08 10:46 | disposition home or self-care (01) ==
LOC: M.ERS 10:21
DX: S00.512A Abrasion of oral cavity, initial encounter (principal); K03.81 Cracked tooth; F41.9 Anxiety disorder, unspecified; F17.210 Nicotine dependence, cigarettes, uncomplicated; Z86.2 Personal history of diseases of the blood and blood-forming organs and certain disorders involving the immune mechanism; Z88.5 Allergy status to narcotic agent; Z88.0 Allergy status to penicillin; Z88.1 Allergy status to other antibiotic agents; Z88.6 Allergy status to analgesic agent; X58.XXXA Exposure to other specified factors, initial encounter; Y93.89 Activity, other specified; Y92.89 Other specified places as the place of occurrence of the external cause; Y99.8 Other external cause status

== ENCOUNTER → 2019-08-17 | Outpatient (CLI) | payer MEDICARE, MEDICAID ==
[~2019-08-17] MED LIST changes: +BACTRIM DS TAB1 EACH PO; +LIDODERM1 EACH TOP; +MAGIC MOUTHWASH SWISH&SPIT; +MULTIVITAMINS1 EAC7 PO; +TRAMADOL 50 MG50 MG PO
[2019-08-17 17:08] LABS: HEMATOCRIT 32.9 % (42.0-52.0); HEMOGLOBIN 11.7 gm/dL (14.0-18.0)
[2019-08-17 17:20] LABS: ALBUMIN 3.2 g/dL (3.4-5.0); CALCIUM 8.9 mg/dL (8.5-10.1); CREATININE 4.9 mg/dL (0.6-1.3); POTASSIUM 3.9 mmol/L (3.5-5.1); TOTAL BILIRUBIN 0.3 mg/dL (<0.1-1.0); TOTAL PROTEIN 6.8 g/dL (6.4-8.2)
[2019-08-17 17:26] LABS: CALCIUM 9.1 mg/dL (8.5-10.1); PHOSPHORUS* 4.2 mg/dL (2.5-4.9)
== END ==
LOC: M.LAB 16:28
PROVIDERS: Nurse Practitioner Family
DX: I12.9 Hypertensive chronic kidney disease with stage 1 through stage 4 chronic kidney disease, or unspecified chronic kidney disease (principal); N18.4 Chronic kidney disease, stage 4 (severe)

== ENCOUNTER 2019-08-21 13:46 | Emergency (ER) | payer MEDICARE, MEDICAID ==
[~2019-08-21] VITALS: Ht 170.2 cm; Wt 59.0 kg
[~2019-08-21 13:46] MED LIST changes: -LIDODERM1 EACH TOP
[2019-08-21 13:50] VITALS: BP 142/79
[2019-08-21] MEDS ORDERED: LIDODERM1 EACH TOP (14:34)
== END 2019-08-21 14:56 | disposition home or self-care (01) ==
LOC: M.ERS 13:46
DX: M54.5 Low back pain (principal); F41.9 Anxiety disorder, unspecified; G89.29 Other chronic pain; N18.6 End stage renal disease; F17.210 Nicotine dependence, cigarettes, uncomplicated; Z88.6 Allergy status to analgesic agent; Z88.0 Allergy status to penicillin; Z88.1 Allergy status to other antibiotic agents; Z88.2 Allergy status to sulfonamides; Z99.2 Dependence on renal dialysis

== ENCOUNTER 2019-09-26 20:28 | Emergency (ER) | payer MEDICARE, MEDICAID ==
[~2019-09-26] VITALS: Ht 170.2 cm; Wt 61.2 kg
[~2019-09-26 20:28] MED LIST changes: +LIDODERM1 EACH TOP
[2019-09-26 22:00] LABS: INFLUENZA A ANTIGEN Negative (Negative); INFLUENZA B ANTIGEN Negative (Negative)
[2019-09-26] MEDS ORDERED: DOXYCYCLINE 10100 MG PO (23:22)
[2019-09-26] MEDS ORDERED: TRAMADOL 50 MG50 MG PO (23:22)
[2019-09-26 23:44] VITALS: BP 142/99
== END 2019-09-26 23:44 | disposition home or self-care (01) ==
LOC: M.ERS 20:28
PROVIDERS: Nurse Practitioner Family
DX: S29.011A Strain of muscle and tendon of front wall of thorax, initial encounter (principal); J20.9 Acute bronchitis, unspecified; F41.9 Anxiety disorder, unspecified; G89.29 Other chronic pain; N18.6 End stage renal disease; Z86.2 Personal history of diseases of the blood and blood-forming organs and certain disorders involving the immune mechanism; Z99.2 Dependence on renal dialysis; X58.XXXA Exposure to other specified factors, initial encounter; Y93.89 Activity, other specified; Y92.89 Other specified places as the place of occurrence of the external cause; Y99.8 Other external cause status

== ENCOUNTER → 2019-10-11 | Outpatient (CLI) | payer MEDICARE, MEDICAID ==
[~2019-10-11] MED LIST changes: +DOXYCYCLINE 10100 MG PO
[2019-10-11 09:28] LABS: HEMATOCRIT 32.1 % (42.0-52.0); HEMOGLOBIN 10.6 gm/dL (14.0-18.0)
[2019-10-11 09:34] LABS: ALBUMIN 2.8 g/dL (3.4-5.0); CREATININE 3.6 mg/dL (0.6-1.3); PHOSPHORUS* 3.8 mg/dL (2.5-4.9); POTASSIUM 3.7 mmol/L (3.5-5.1); TOTAL BILIRUBIN 0.2 mg/dL (<0.1-1.0); TOTAL PROTEIN 6.6 g/dL (6.4-8.2)
[2019-10-11 09:42] LABS: CALCIUM 8.5 mg/dL (8.5-10.1); CREATININE 3.4 mg/dL (0.6-1.3); PHOSPHORUS* 3.9 mg/dL (2.5-4.9)
== END ==
LOC: M.LAB 08:56
PROVIDERS: Internal Medicine Nephrology
DX: I12.0 Hypertensive chronic kidney disease with stage 5 chronic kidney disease or end stage renal disease (principal); N18.6 End stage renal disease

== ENCOUNTER 2019-11-08 13:28 | Emergency (ER) | payer MEDICARE, MEDICAID ==
[~2019-11-08] VITALS: Ht 167.6 cm; Wt 65.8 kg
[2019-11-08 13:35] VITALS: BP 141/96
[2019-11-08] MEDS ORDERED: SUBOXONE 4 MG-1 EACH SUBLING (13:38)
== END 2019-11-08 14:20 | disposition left against medical advice (07) ==
LOC: M.ERS 13:28
DX: Z53.21 Procedure and treatment not carried out due to patient leaving prior to being seen by health care provider (principal)

== ENCOUNTER → 2020-01-23 | Outpatient (CLI) | payer MEDICARE, MEDICAID ==
[~2020-01-23] MED LIST changes: +SUBOXONE 4 MG-1 EACH SUBLING
[2020-01-23 12:30] LABS: ALBUMIN 3.2 g/dL (3.4-5.0); CALCIUM 8.2 mg/dL (8.5-10.1); CREATININE 3.6 mg/dL (0.6-1.3); PHOSPHORUS* 4.6 mg/dL (2.5-4.9); POTASSIUM 4.3 mmol/L (3.5-5.1)
[2020-01-23 12:43] LABS: CALCIUM 8.3 mg/dL (8.5-10.1); CREATININE 3.7 mg/dL (0.6-1.3); PHOSPHORUS* 4.8 mg/dL (2.5-4.9)
== END ==
LOC: M.LAB 12:00
PROVIDERS: Internal Medicine Nephrology
DX: N05.5 Unspecified nephritic syndrome with diffuse mesangiocapillary glomerulonephritis (principal); N18.5 Chronic kidney disease, stage 5

== ENCOUNTER 2020-05-30 21:05 | Emergency (ER) | payer MEDICARE, MEDICAID ==
[~2020-05-30] VITALS: Ht 167.6 cm; Wt 63.5 kg
[2020-05-30 21:24] VITALS: BP 159/117
[2020-05-30] MEDS ORDERED: ZYRTEC10 M5 PO (21:30)
[2020-05-30] MEDS ORDERED: BUPROPION XL300 MG PO (21:31)
[2020-05-30 21:59] LABS: HEMATOCRIT 33.1 % (42.0-52.0); HEMOGLOBIN 11.4 gm/dL (14.0-18.0); MCH 30.1 pg (26.0-34.0); MCHC 34.5 g/dL (28.0-37.0); MCV 87.3 fL (80.0-100.0); MPV 8.2 fl. (7.2-11.1); RBC 3.8 mil/uL (4.50-6.00); RDW-CV 13.2 % (10.5-14.5)
[2020-05-30 21:59] LABS: URINE BILIRUBIN NEGATIVE (Negative); URINE BLOOD 3+ (Negative); URINE CLARITY SL CLOUDY; URINE COLOR RED; URINE GLUCOSE-RANDOM TRACE (Negative); URINE KETONES NEGATIVE (Negative); URINE LEUKOCYTES-REFLEX NEGATIVE (Negative); URINE NITRITE-REFLEX NEGATIVE (Negative); URINE PROTEIN 3+ (Negative); URINE UROBILINOGEN 0.2 E.U./dl (0.2-1.0)
[2020-05-30 22:06] LABS: CRYSTALS None Seen /LPF (None Seen); HYALINE CASTS 0-3 Few /LPF (None Seen); MUCUS None Seen strn/LPF (None Seen); SQUAMOUS 0-3 Few /LPF (0-3); URINE RBC >20 Many /HPF (0-2)
[2020-05-30 22:07] LABS: BACTERIA-REFLEX None Seen /HPF (None Seen); URINE WBC-REFLEX 0-5 Rare /HPF (0-5)
[2020-05-30 22:08] LABS: CALCIUM 8.3 mg/dL (8.5-10.1); CREATININE 11.5 mg/dL (0.6-1.3)
[2020-05-30 22:09] LABS: POTASSIUM 2.8 mmol/L (3.5-5.1)
[2020-05-30 22:12] LABS: ALBUMIN 3.6 g/dL (3.4-5.0); TOTAL BILIRUBIN 0.5 mg/dL (<0.1-1.0); TOTAL PROTEIN 7.9 g/dL (6.4-8.2)
[2020-05-30 22:13] LABS: AMP/METHAMP POSITIVE (Negative); BARBITURATES Negative (Negative); BENZODIAZEPINES Negative (Negative); COCAINE Negative (Negative); METHADONE Negative (Negative); OPIATES POSITIVE (Negative); PCP Negative (Negative); THC Negative (Negative)
[2020-05-31 00:02] VITALS: BP 162/111
[2020-05-31] MEDS ORDERED: KEFLEX250 M1 PO (00:02)
--- NOTE | 2020-05-31 08:49 | EKG ---
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
== END 2020-05-31 00:03 | disposition left against medical advice (07) ==
LOC: M.ERS 21:05 → M.TBA-ER 22:31 → M.ERS 22:31 → M.TBA-ER 05-31 00:03
PROVIDERS: Emergency Medicine Emergency Medical Services
DX: L03.116 Cellulitis of left lower limb (principal); N19 Unspecified kidney failure; E87.6 Hypokalemia; F17.210 Nicotine dependence, cigarettes, uncomplicated; G89.29 Other chronic pain; F11.90 Opioid use, unspecified, uncomplicated; Z88.5 Allergy status to narcotic agent; Z88.6 Allergy status to analgesic agent; Z88.1 Allergy status to other antibiotic agents; Z88.0 Allergy status to penicillin; Z79.899 Other long term (current) drug therapy

== ENCOUNTER 2020-06-19 13:30 | Inpatient (IN) | payer MEDICARE, MEDICAID ==
[~2020-06-19] VITALS: Ht 175.3 cm; Wt 59.0 kg
[~2020-06-19 13:30] MED LIST changes: +BUPROPION XL300 MG PO; +KEFLEX250 M1 PO; +ZYRTEC10 M5 PO
[2020-06-19 14:04] VITALS: BP 155/104
[2020-06-19 15:03] LABS: HEMATOCRIT 28.2 % (42.0-52.0); MCH 30.8 pg (26.0-34.0); MCHC 35.5 g/dL (28.0-37.0); MCV 86.6 fL (80.0-100.0); MPV 9.1 fl. (7.2-11.1); NUCLEATED RBCS 0 /100WBC; PLATELET COUNT* 119 thou/uL (150-400); RBC 3.26 mil/uL (4.50-6.00); RDW-CV 13.3 % (10.5-14.5); WBC 9.3 thou/uL (4.0-11.0)
[2020-06-19 15:10] LABS: APTT 21.2 Seconds (25.0-31.3); PROTIME 10.1 Seconds (9.20-11.50)
[2020-06-19 15:11] LABS: CALCIUM 7.9 mg/dL (8.5-10.1)
[2020-06-19 15:21] LABS: ALBUMIN 3.1 g/dL (3.4-5.0); TOTAL BILIRUBIN 0.4 mg/dL (<0.1-1.0); TOTAL PROTEIN 7.1 g/dL (6.4-8.2)
[2020-06-19 15:41] LABS: ABSOLUTE LYMPHOCYTES 0.7 thou/uL (0.8-5.3); ABSOLUTE MONOCYTES 0.2 thou/uL (0.0-1.2); ABSOLUTE NEUTROPHILS 8.5 thou/uL (1.6-8.1); PLATELET ESTIMATE ADEQUATE
[2020-06-19 18:32] LABS: URINE BILIRUBIN NEGATIVE (Negative); URINE BLOOD 3+ (Negative); URINE CLARITY CLOUDY; URINE COLOR RED; URINE GLUCOSE-RANDOM 1+ (Negative); URINE KETONES NEGATIVE (Negative); URINE LEUKOCYTES-REFLEX NEGATIVE (Negative); URINE NITRITE-REFLEX NEGATIVE (Negative); URINE PROTEIN 3+ (Negative); URINE SPECIFIC GRAVITY 1.015 (1.005-1.030); URINE UROBILINOGEN 0.2 E.U./dl (0.2-1.0)
[2020-06-19 18:38] LABS: BACTERIA-REFLEX >30 Many /HPF (None Seen); CASTS None Seen /LPF (None Seen); CRYSTALS None Seen /LPF (None Seen); SQUAMOUS 0-3 Few /LPF (0-3); URINE RBC >20 Many /HPF (0-2); URINE WBC-REFLEX 6-15 Few /HPF (0-5)
[2020-06-19 19:40] VITALS: BP 131/70
[2020-06-19 20:00] VITALS: BP 144/80
[2020-06-19 23:32] VITALS: BP 151/76
[2020-06-19 23:50] VITALS: BP 147/100
[2020-06-20 03:30] VITALS: BP 138/95
[2020-06-20 04:07] LABS: ABSOLUTE EOSINOPHILS 0.1 thou/uL (0.0-0.7); ABSOLUTE LYMPHOCYTES 0.8 thou/uL (0.8-5.3); ABSOLUTE MONOCYTES 0.2 thou/uL (0.0-1.2); ABSOLUTE NEUTROPHILS 2.7 thou/uL (1.6-8.1); BASOPHILS 0.7 %; EOSINOPHILS 3.5 %; HEMATOCRIT 25.4 % (42.0-52.0); HEMOGLOBIN 8.8 gm/dL (14.0-18.0); LYMPHOCYTES 21.5 %; MCH 29.8 pg (26.0-34.0); MCHC 34.5 g/dL (28.0-37.0); MCV 86.2 fL (80.0-100.0); MONOCYTES 6.1 %; MPV 8.7 fl. (7.2-11.1); NUCLEATED RBCS 0 /100WBC; PLATELET COUNT* 105 thou/uL (150-400); POLYS 68.2 %; RBC 2.95 mil/uL (4.50-6.00); RDW-CV 13.6 % (10.5-14.5); WBC 3.9 thou/uL (4.0-11.0)
[2020-06-20 04:50] LABS: ALBUMIN 2.6 g/dL (3.4-5.0); CALCIUM 7.6 mg/dL (8.5-10.1); CREATININE 10.9 mg/dL (0.6-1.3); MAGNESIUM 3.1 mg/dL (1.8-2.4); PHOSPHORUS* 9.6 mg/dL (2.5-4.9)
[2020-06-20 07:30] VITALS: BP 118/77
--- NOTE | 2020-06-20 08:19 | EKG ---
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[place] : 1980 Requested By: Jf White Order Number: [id number] MD: Sergo Araiza Measurements Intervals [place] Rate: 72 P: 83 ID: 179 QRS: 77 QRSD: 106 T: 53 QT: 456 QTc: 500 Interpretive Statements Sinus rhythm Probable left ventricular hypertrophy Borderline prolonged QT interval Compared to ECG 05/30/2020 22:29:34 No significant changes Electronically Signed On 06-20-2020 8:19:19 CDT by Sergo Araiza [email or web address] <ELECTRONICALLY SIGNED> By: Sergo Araiza MD, FAC 06/20/20 0819 1601 1601 Sergo Araiza MD, [facility] /EPI
[2020-06-20 10:20] VITALS: BP 123/64
[2020-06-20 14:23] LABS: AMP/METHAMP Negative (Negative); BARBITURATES Negative (Negative); BENZODIAZEPINES Negative (Negative); COCAINE Negative (Negative); METHADONE Negative (Negative); OPIATES POSITIVE (Negative); PCP Negative (Negative); THC Negative (Negative)
[2020-06-20] MEDS ORDERED: SUBOXONE 8 MG-1 EAC3 PO (14:29)
[2020-06-20 15:55] VITALS: BP 116/83
[2020-06-20 23:03] VITALS: BP 124/94
[2020-06-21 03:06] LABS: HEPATITIS B SURFACE AG Negative (Negative)
[2020-06-21 03:06] LABS: HEPATITIS B SURFACE AG Negative (Negative)
[2020-06-21 04:01] LABS: HEMATOCRIT 28.7 % (42.0-52.0); MCHC 34.8 g/dL (28.0-37.0); MCV 86.3 fL (80.0-100.0); MPV 9.4 fl. (7.2-11.1); RBC 3.33 mil/uL (4.50-6.00); RDW-CV 13.8 % (10.5-14.5); WBC 4.2 thou/uL (4.0-11.0)
[2020-06-21 04:11] LABS: CALCIUM 7.3 mg/dL (8.5-10.1); MAGNESIUM 2.5 mg/dL (1.8-2.4); POTASSIUM 3.2 mmol/L (3.5-5.1)
[2020-06-21 08:15] VITALS: BP 113/69
[2020-06-21] MEDS ORDERED: NEPHRO-VITE TA0.8 MG PO (11:09)
[2020-06-21] MEDS ORDERED: CALCIUM ACETAT667 MG PO (11:09)
[2020-06-21] MEDS ORDERED: LIDODERM1 EACH TOP (11:35)
[2020-06-21 20:00] VITALS: BP 135/61
[2020-06-22 04:13] LABS: HEMOGLOBIN 9.8 gm/dL (14.0-18.0); MCH 30.4 pg (26.0-34.0); MCHC 33.9 g/dL (28.0-37.0); MCV 89.7 fL (80.0-100.0); MPV 10.4 fl. (7.2-11.1); RBC 3.23 mil/uL (4.50-6.00); RDW-CV 13.9 % (10.5-14.5); WBC 3.3 thou/uL (4.0-11.0)
[2020-06-22 04:21] LABS: ALBUMIN 2.7 g/dL (3.4-5.0); CALCIUM 7.7 mg/dL (8.5-10.1); POTASSIUM 3.3 mmol/L (3.5-5.1); TOTAL BILIRUBIN 0.2 mg/dL (<0.1-1.0); TOTAL PROTEIN 6.2 g/dL (6.4-8.2)
[2020-06-22 04:29] LABS: CREATININE 5.5 mg/dL (0.6-1.3)
[2020-06-22 08:00] VITALS: BP 135/90
[2020-06-22 16:00] VITALS: BP 114/64
[2020-06-22 20:00] VITALS: BP 129/79
[2020-06-23 08:00] VITALS: BP 114/69
[2020-06-23] MEDS ORDERED: BUPRENORPHN-NA1 EACH SUBLING (10:19)
[2020-06-23 10:39] VITALS: BP 114/69
[2020-06-23 10:55] VITALS: BP 114/69
--- NOTE | 2020-07-01 11:51 | CON ---
[address] [address] CONSULTATION Name: NGUYỄN BUTTERFIELDLAUREN TORRESE Room: [address] IN M.R.#: [id number] Admission: 06/19/20 Attend Phys: Hosea Velasco, Discharge: 06/23/20 Date of : 82 Report #: [id number] THIS REPORT FOR: //name// cc: CAROL VILLEGAS KEVIN ~ THIS REPORT FOR: //name// CC: Jf VILLEGAS DATE OF SERVICE: 06/19/2020 NEPHROLOGY CONSULTATION REASON FOR CONSULTATION: Elevated creatinine. HISTORY OF PRESENT ILLNESS: A 39-year-old gentleman who has underlying history of chronic kidney disease, was on dialysis at one time and was very poorly compliant with dialysis, but did eventually regain some kidney function. He has an extensive history of substance abuse and has relapsed numerous times. About 20 days ago when he presented to the ER, he had a creatinine of 11.5. He ended up not being admitted during that visit and comes back due to abnormal labs. His creatinine is 11. He has been feeling weak, fatigued. Denies any nausea or vomiting. He has been eating well for the past few days, but feels hungry. He has been using heroin, last used this within the past few days. REVIEW OF SYSTEMS: Constitutional, psych, heme, eyes, ENT, respiratory, cardiac, GI, , endocrine, all negative except as documented above. PAST MEDICAL HISTORY: Chronic kidney disease and previously was on hemodialysis, history of MPGN, substance abuse. FAMILY HISTORY: No known kidney disease. SOCIAL HISTORY: Positive for IV drug abuse. PHYSICAL EXAMINATION: VITAL SIGNS: Blood pressure is 155/104, pulse 94, respirations 14, temperature 36.3. GENERAL: No acute distress. EYES: Open. EARS: Externally normal. NECK: Supple. CARDIOVASCULAR: Regular rate. No rub. LUNGS: No crackles. ABDOMEN: [place] [address] CONSULTATION Name: EMMA BUTTERFIELD Room: [address]#: [id number] Admission: 06/19/20 Attend Phys: Hosea Velasco, Discharge: 06/23/20 Date of : 82 Report #: [id number] MUSCULOSKELETAL: Nontender. NEUROLOGIC: No asterixis. PSYCHIATRIC: Awake, alert, oriented. LABORATORY DATA: White cell count 9.3, hemoglobin 10, platelets 119. Sodium 136, potassium 3, chloride 99, bicarbonate 24, BUN 69, creatinine 11, glucose 102, calcium 7.9, albumin 3.1. ASSESSMENT: 1. 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 He was on hemodialysis in the past. His creatinine here on admission is 11. 2. Substance abuse. 3. Hypokalemia. 4. History of tunneled dialysis catheter infection, history of arteriovenous access infection. PLAN: 1. Replace potassium. 2. I did discuss with the patient his substance abuse and the need for rehab and abstinence. He understands this. He has relapsed numerous times. Social work may be of benefit and help him establish contact with a rehab facility. Will have a tunneled dialysis catheter placed. I did obtain an informed consent from the patient to proceed with this. We will consult Interventional Radiology to have this done tomorrow. He will initiate hemodialysis tomorrow. We will ask case management to set up outpatient dialysis. We will start him on a renal vitamin and check hepatitis profile. We will check a renal ultrasound to exclude any possible obstruction, although clinically this seems unlikely. Check labs again in the a.m. Thank you for requesting my opinion in the care and management of this patient. <ELECTRONICALLY SIGNED> By: Edgardo Vyas MD 07/01/20 1151 1551 [id number] Vyas MD /nt
== END 2020-06-23 11:55 | disposition home or self-care (01) | DRG 673 ==
LOC: M.ERS 13:30 → M.3W 15:47 → M.TBA-ER 15:47 → M.3W 06-20 00:11
PROVIDERS: Family Medicine; Internal Medicine; Internal Medicine Nephrology; ADMIT Family Medicine; ATTEND Family Medicine
DX: I12.0 Hypertensive chronic kidney disease with stage 5 chronic kidney disease or end stage renal disease (principal); N17.0 Acute kidney failure with tubular necrosis; N18.6 End stage renal disease; E44.1 Mild protein-calorie malnutrition; D61.818 Other pancytopenia; Z68.1 Body mass index [BMI] 19.9 or less, adult; E87.6 Hypokalemia; F19.10 Other psychoactive substance abuse, uncomplicated; F17.210 Nicotine dependence, cigarettes, uncomplicated; F15.90 Other stimulant use, unspecified, uncomplicated; G89.29 Other chronic pain; M54.9 Dorsalgia, unspecified; D63.8 Anemia in other chronic diseases classified elsewhere; F41.9 Anxiety disorder, unspecified; Z20.828 Contact with and (suspected) exposure to other viral communicable diseases; E83.39 Other disorders of phosphorus metabolism; Z91.14 Patient's other noncompliance with medication regimen; Z99.2 Dependence on renal dialysis; Z88.0 Allergy status to penicillin; Z88.1 Allergy status to other antibiotic agents; Z88.2 Allergy status to sulfonamides; Z95.828 Presence of other vascular implants and grafts

== ENCOUNTER 2020-08-10 16:40 | Emergency (ER) | payer MEDICARE, MEDICAID ==
[~2020-08-10] VITALS: Ht 170.2 cm; Wt 60.0 kg
[~2020-08-10 16:40] MED LIST changes: +BUPRENORPHN-NA1 EACH SUBLING; +CALCIUM ACETAT667 MG PO; +NEPHRO-VITE TA0.8 MG PO; +SUBOXONE 8 MG-1 EAC3 PO
[2020-08-10] MEDS ORDERED: SUBOXONE 8 MG-1 EAC3 SUBLING (16:55)
[2020-08-10 17:11] LABS: ABSOLUTE EOSINOPHILS 0.1 thou/uL (0.0-0.7); ABSOLUTE LYMPHOCYTES 1.2 thou/uL (0.8-5.3); ABSOLUTE MONOCYTES 0.4 thou/uL (0.0-1.2); ABSOLUTE NEUTROPHILS 3.9 thou/uL (1.6-8.1); BASOPHILS 0.7 %; EOSINOPHILS 1.8 %; HEMATOCRIT 35.8 % (42.0-52.0); HEMOGLOBIN 12.1 gm/dL (14.0-18.0); LYMPHOCYTES 21.1 %; MCH 29.7 pg (26.0-34.0); MCHC 33.9 g/dL (28.0-37.0); MCV 87.4 fL (80.0-100.0); MONOCYTES 7.8 %; MPV 8.4 fl. (7.2-11.1); NUCLEATED RBCS 0 /100WBC; PLATELET COUNT* 176 thou/uL (150-400); POLYS 68.6 %; WBC 5.6 thou/uL (4.0-11.0)
[2020-08-10 17:15] LABS: CALCIUM 9.4 mg/dL (8.5-10.1); CREATININE 7.1 mg/dL (0.6-1.3); POTASSIUM 3.2 mmol/L (3.5-5.1)
[2020-08-10 17:19] LABS: ALBUMIN 3.8 g/dL (3.4-5.0); TOTAL BILIRUBIN 0.4 mg/dL (<0.1-1.0)
[2020-08-10 17:45] VITALS: BP 141/107
--- NOTE | 2020-08-11 11:11 | EKG ---
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: [facility] : 1980 Requested By: Chary Rome Order Number: [id number] MD: Sergo Araiza Measurements Intervals [place] Rate: 84 P: 79 CT: 181 QRS: 65 QRSD: 103 T: 39 QT: 377 QTc: 446 Interpretive Statements Sinus rhythm Left ventricular hypertrophy Compared to ECG 06/19/2020 16:01:57 No significant changes Electronically Signed On 08-11-2020 11:11:20 CDT by Sergo Araiza [email or web address] <ELECTRONICALLY SIGNED> By: Sergo Araiza MD, [facility] 08/11/20 1111 171 11 Sergo Araiza MD, [facility] /EPI
== END 2020-08-10 17:45 | disposition home or self-care (01) ==
LOC: M.ERS 16:40
PROVIDERS: Physician Assistant
DX: I12.0 Hypertensive chronic kidney disease with stage 5 chronic kidney disease or end stage renal disease (principal); N18.6 End stage renal disease; F17.210 Nicotine dependence, cigarettes, uncomplicated; Z99.2 Dependence on renal dialysis; Z79.899 Other long term (current) drug therapy; Z88.0 Allergy status to penicillin; Z88.2 Allergy status to sulfonamides; Z88.1 Allergy status to other antibiotic agents; Z88.6 Allergy status to analgesic agent

== ENCOUNTER 2020-12-23 16:16 | Inpatient (IN) | payer MEDICARE, MEDICAID ==
[~2020-12-23] VITALS: Ht 167.6 cm; Wt 65.8 kg
--- NOTE | ~2020-12-23 | OP ---
[address] [address] OPERATIVE REPORT Name: EMMA BUTTERFIELD Room: [address] IN .R.#: [id number] Admission: 12/23/20 Attend Phys: Angie Dozier MD Discharge: 12/28/20 Date of : 82 Report #: [id number] THIS REPORT FOR: cc: CAROL VILLEGAS KEVIN ~ [facility],Medical Records Staff Please see the Transesophageal Echocardiogram report. By: [id number] Records Staff NING /MELISA
[~2020-12-23 16:16] MED LIST changes: +SUBOXONE 8 MG-1 EAC3 SUBLING
[2020-12-23 16:31] VITALS: BP 175/116
[2020-12-23] MEDS ORDERED: VITAMIN D-40010 MCG PO ×2 (16:36)
[2020-12-23 17:06] LABS: ABSOLUTE EOSINOPHILS 0.1 thou/uL (0.0-0.7); ABSOLUTE LYMPHOCYTES 0.7 thou/uL (0.8-5.3); ABSOLUTE MONOCYTES 0.3 thou/uL (0.0-1.2); ABSOLUTE NEUTROPHILS 3.9 thou/uL (1.6-8.1); BASOPHILS 0.3 %; EOSINOPHILS 1.1 %; HEMATOCRIT 30.9 % (42.0-52.0); HEMOGLOBIN 10.5 gm/dL (14.0-18.0); LYMPHOCYTES 13.9 %; MCH 30.8 pg (26.0-34.0); MCV 90.8 fL (80.0-100.0); MONOCYTES 6.6 %; MPV 7.8 fl. (7.2-11.1); NUCLEATED RBCS 0 /100WBC; PLATELET COUNT* 114 thou/uL (150-400); POLYS 78.1 %; RDW-CV 15.3 % (10.5-14.5)
[2020-12-23 17:16] LABS: CALCIUM 7.8 mg/dL (8.5-10.1); CREATININE 11.2 mg/dL (0.6-1.3); POTASSIUM 3.9 mmol/L (3.5-5.1)
[2020-12-23 17:17] LABS: INR 0.9
[2020-12-23 17:27] LABS: TOTAL BILIRUBIN 0.4 mg/dL (<0.1-1.0); TOTAL PROTEIN 6.2 g/dL (6.4-8.2)
[2020-12-23 18:40] VITALS: BP 163/103
[2020-12-23 18:49] VITALS: BP 155/83
[2020-12-24 04:46] VITALS: BP 149/94
[2020-12-24 04:53] LABS: HEMATOCRIT 28.1 % (42.0-52.0); HEMOGLOBIN 9.7 gm/dL (14.0-18.0); MCH 30.7 pg (26.0-34.0); MCHC 34.4 g/dL (28.0-37.0); MCV 89.2 fL (80.0-100.0); MPV 8.9 fl. (7.2-11.1); RBC 3.15 mil/uL (4.50-6.00); RDW-CV 15.4 % (10.5-14.5); WBC 4.4 thou/uL (4.0-11.0)
[2020-12-24 05:14] LABS: ALBUMIN 2.5 g/dL (3.4-5.0); CALCIUM 7.5 mg/dL (8.5-10.1); CREATININE 11.4 mg/dL (0.6-1.3); MAGNESIUM 2.8 mg/dL (1.8-2.4); POTASSIUM 3.8 mmol/L (3.5-5.1); TOTAL BILIRUBIN 0.3 mg/dL (<0.1-1.0); TOTAL PROTEIN 5.5 g/dL (6.4-8.2)
[2020-12-24 08:30] VITALS: BP 137/82
--- NOTE | 2020-12-24 11:11 | EKG ---
[place] [address] ELECTROCARDIOGRAM REPORT Name: SCOUTEMMA HUYNH Room: [address] ADM IN M.R.#: [id number] Admission: 12/23/20 Attend Phys: Angie Dozier, Discharge: Date of : 82 Date of Service: 12/23/20 1700 Report #: [id number] THIS REPORT FOR: //name// [facility] ED Test Date: 2020-12-23 Test Time: 17:00:16 Pat Name: EMMA BUTTERFIELD Department: Room: [facility] Gender: M Barrel Cooper: CCD : 1980 Requested By: Jf White Order Number: [id number] MD: Sergo Araiza Measurements Intervals [place] Rate: 84 P: 82 MS: 174 QRS: 71 QRSD: 102 T: 50 QT: 388 QTc: 459 Interpretive Statements Sinus rhythm Probable left ventricular hypertrophy Compared to ECG 08/10/2020 17:12:57 No significant changes Electronically Signed On 12-24-2020 11:11:25 MOTORSPORTS TECHNICIAN by Sergo Araiza [email or web address] <ELECTRONICALLY SIGNED> By: Sergo Araiza MD, FACC 12/24/20 1111 1700 1700 Sergo Araiza MD, [facility] /EPI
[2020-12-24 12:20] VITALS: BP 135/82
[2020-12-24 16:00] VITALS: BP 151/93
[2020-12-24 20:00] VITALS: BP 161/99
[2020-12-24 20:12] LABS: URINE BLOOD 3+ (Negative); URINE CLARITY CLOUDY; URINE COLOR RED; URINE GLUCOSE-RANDOM TRACE (Negative); URINE KETONES TRACE (Negative); URINE LEUKOCYTES-REFLEX NEGATIVE (Negative); URINE PROTEIN 3+ (Negative); URINE SPECIFIC GRAVITY 1.015 (1.005-1.030); URINE UROBILINOGEN 0.2 E.U./dl (0.2-1.0)
[2020-12-24 20:14] LABS: URINE BILIRUBIN 1+ (Negative); URINE NITRITE-REFLEX POSITIVE (Negative)
[2020-12-24 20:15] LABS: ICTOTEST (BILI CONFIRMATORY) Negative (Negative)
[2020-12-24 20:19] LABS: BACTERIA-REFLEX 1-9 Few /HPF (None Seen); HYALINE CASTS 0-3 Few /LPF (None Seen); URINE RBC None Seen /HPF (0-2); YEAST-REFLEX Present (None Seen)
[2020-12-24 20:20] LABS: URINE WBC-REFLEX 0-5 Rare /HPF (0-5)
[2020-12-24 20:21] LABS: AMP/METHAMP Negative (Negative); BARBITURATES Negative (Negative); BENZODIAZEPINES Negative (Negative); COCAINE Negative (Negative); METHADONE Negative (Negative); OPIATES POSITIVE (Negative); PCP Negative (Negative); THC Negative (Negative)
[2020-12-24 20:22] LABS: CRYSTALS None Seen /LPF (None Seen); MUCUS None Seen strn/LPF (None Seen); SQUAMOUS NONE SEEN /LPF (0-3)
[2020-12-25 00:20] VITALS: BP 151/92
[2020-12-25 04:06] VITALS: BP 166/98
[2020-12-25 04:36] LABS: ABSOLUTE EOSINOPHILS 0.1 thou/uL (0.0-0.7); ABSOLUTE LYMPHOCYTES 0.6 thou/uL (0.8-5.3); ABSOLUTE MONOCYTES 0.2 thou/uL (0.0-1.2); ABSOLUTE NEUTROPHILS 1.6 thou/uL (1.6-8.1); BASOPHILS 0.6 %; EOSINOPHILS 2.5 %; HEMATOCRIT 27.1 % (42.0-52.0); HEMOGLOBIN 9.1 gm/dL (14.0-18.0); MCH 30.6 pg (26.0-34.0); MCHC 33.8 g/dL (28.0-37.0); MCV 90.4 fL (80.0-100.0); MONOCYTES 8.6 %; MPV 9.8 fl. (7.2-11.1); NUCLEATED RBCS 0 /100WBC; PLATELET COUNT* 69 thou/uL (150-400); POLYS 65.3 %; RBC 2.99 mil/uL (4.50-6.00); WBC 2.4 thou/uL (4.0-11.0)
[2020-12-25 04:49] LABS: ALBUMIN 2.2 g/dL (3.4-5.0); CALCIUM 8.1 mg/dL (8.5-10.1); MAGNESIUM 2.8 mg/dL (1.8-2.4); POTASSIUM 4.5 mmol/L (3.5-5.1); TOTAL BILIRUBIN 0.3 mg/dL (<0.1-1.0); TOTAL PROTEIN 5.2 g/dL (6.4-8.2)
[2020-12-25 04:54] LABS: CREATININE 13.1 mg/dL (0.6-1.3)
[2020-12-25 08:45] VITALS: BP 148/97
[2020-12-25 15:50] VITALS: BP 151/87
[2020-12-25 20:44] VITALS: BP 150/89
[2020-12-26] VITALS: BP 148/53
[2020-12-26 04:25] LABS: ABSOLUTE EOSINOPHILS 0.1 thou/uL (0.0-0.7); ABSOLUTE LYMPHOCYTES 0.5 thou/uL (0.8-5.3); ABSOLUTE MONOCYTES 0.3 thou/uL (0.0-1.2); ABSOLUTE NEUTROPHILS 1.2 thou/uL (1.6-8.1); BASOPHILS 0.8 %; EOSINOPHILS 5.3 %; HEMATOCRIT 26.1 % (42.0-52.0); HEMOGLOBIN 8.9 gm/dL (14.0-18.0); LYMPHOCYTES 23.2 %; MCH 30.3 pg (26.0-34.0); MCV 89.1 fL (80.0-100.0); MONOCYTES 12.7 %; MPV 8.9 fl. (7.2-11.1); NUCLEATED RBCS 0 /100WBC; PLATELET COUNT* 71 thou/uL (150-400); RBC 2.93 mil/uL (4.50-6.00); RDW-CV 15.1 % (10.5-14.5)
[2020-12-26 04:32] LABS: CALCIUM 7.8 mg/dL (8.5-10.1); POTASSIUM 4.2 mmol/L (3.5-5.1)
[2020-12-26 04:40] LABS: CREATININE 10.3 mg/dL (0.6-1.3)
[2020-12-26 05:43] VITALS: BP 132/82
[2020-12-26 08:00] VITALS: BP 138/94
[2020-12-26 17:23] VITALS: BP 146/100
[2020-12-26 20:04] VITALS: BP 167/103
[2020-12-26 22:00] VITALS: BP 165/93
[2020-12-26] MEDS ORDERED: COREG6.25 MG PO ×2 (23:16)
[2020-12-27] VITALS (12 sets, daily range): BP systolic 106–180; BP diastolic 59–96
[2020-12-27 04:33] LABS: HEMATOCRIT 28.2 % (42.0-52.0); HEMOGLOBIN 9.7 gm/dL (14.0-18.0); MCH 30.9 pg (26.0-34.0); MCHC 34.4 g/dL (28.0-37.0); MPV 8.9 fl. (7.2-11.1); RBC 3.13 mil/uL (4.50-6.00); RDW-CV 15.4 % (10.5-14.5); WBC 2.5 thou/uL (4.0-11.0)
[2020-12-27 04:58] LABS: CALCIUM 7.9 mg/dL (8.5-10.1); PHOSPHORUS* 7.5 mg/dL (2.5-4.9); POTASSIUM 4.3 mmol/L (3.5-5.1)
[2020-12-27 04:59] LABS: CREATININE 7.7 mg/dL (0.6-1.3)
--- NOTE | 2020-12-27 09:23 | TEE ---
[place] [address] TRANSESOPHAGEAL ECHOCARDIOGRAM Name: BUTTERFIELDEMMA Room: [address] IN [facility]#: [id number] Admission: 12/23/20 Attend Phys: Angie Dozier, Discharge: Date of : 82 Date of Service: 12/27/20 0923 Report #: [id number] THIS REPORT FOR: cc: CAROL VILLEGAS,CAROL Araiza,Sergo Moses MD [facility] ~ APPROVED REPORT Study performed: 12/27/2020 08:03:10 EXAM: Transesophageal Echocardiogram Patient Location: In-Patient Room #: [facility] Status: routine BSA: 1.75 HR: 77 bpm BP: 148/90 mmHg Rhythm: NSR Other Information Study Quality: Good Indications Rule out valvular vegetation infected dialysis line Echo Enhancing Agent Indication: Rule out Shunt Agent(s) / Amount(s) Used: Agitated Saline 20 cc Comments: 2 bubble studies performed Procedure After obtaining informed consent, patient underwent transesophageal echo in the Operations Label Clerk Holding. Type of Sedation : General Anesthesia Sedation was administered by Anesthesiologist. Sedation start time: 803 Case end Time: 819 Sedation was achieved intravenously with: Versed (2) Fentanyl (50) Propofol (250) Transesophageal probe was inserted and advanced into esophagus without difficulty by Sergo Araiza MD, [facility]. Echo enhancement indication: R/O Septal defect. Echo enhancement agent administered: Agitated Saline The ALBERTINA [place] [address] TRANSESOPHAGEAL ECHOCARDIOGRAM Name: BUTTERFIELDEMMA JOE Room: [address] IN .R.#: [id number] Admission: 12/23/20 Attend Phys: Angie Dozier, Discharge: Date of : 82 Date of Service: 12/27/20 0923 Report #: [id number] Throughout the procedure, the blood pressure, pulse oximetry, cardiac rhythm, and rate were monitored. The patient tolerated the procedure without adverse effects. Recovery from conscious sedation was uneventful and vital signs were stable. Left Ventricle The left ventricle is normal size. There is normal LV segmental wall motion. There is normal left ventricular wall thickness. Left ventricular systolic function is normal. The left ventricular ejection fraction is within the normal range. LVEF is 60-65%. Right Ventricle The right ventricle is normal size. The right ventricular systolic function is normal. Atria The left atrium size is normal. No thrombus is visualized in the left atrium or appendage. The interatrial septum is intact with no evidence for an atrial septal defect. The right atrium size is normal. Aortic Valve The aortic valve is normal in structure. No valvular vegeations noted No aortic regurgitation is present. There is no aortic valvular stenosis. Mitral Valve The mitral valve is normal in structure. Trace mitral regurgitation. No evidence of mitral valve stenosis. Tricuspid Valve The tricuspid valve is normal in structure. Trace tricuspid regurgitation. Pulmonic Valve The pulmonary valve is normal in structure. There is no pulmonic valvular regurgitation. Great Vessels The aortic root is normal in size. Pericardium There is no pericardial effusion. <Conclusion> [place] [address] TRANSESOPHAGEAL ECHOCARDIOGRAM Name: EMMA BUTTERFIELD Room: [address] IN .R.#: [id number] Admission: 12/23/20 Attend Phys: Angie Dozier, Discharge: Date of : 82 Date of Service: 12/27/20922 Report #: [id number] LVEF is 60-65%. The interatrial septum is intact with no evidence for an atrial septal defect. no valvular vegetations noted <ELECTRONICALLY SIGNED> By: Sergo Araiza MD, FACC 12/27/20922 2 2 Sergo Araiza MD, FACC /INF
[2020-12-27 20:33] LABS: HIV-1/HIV-2 ANTIBODY Non Reactive (Non Reactive)
[2020-12-28] VITALS: BP 142/89
[2020-12-28 04:40] LABS: HEMATOCRIT 26.4 % (42.0-52.0); HEMOGLOBIN 8.9 gm/dL (14.0-18.0); MCH 30.3 pg (26.0-34.0); MCHC 33.7 g/dL (28.0-37.0); MCV 89.9 fL (80.0-100.0); MPV 8.6 fl. (7.2-11.1); RBC 2.94 mil/uL (4.50-6.00); RDW-CV 14.8 % (10.5-14.5); WBC 2.3 thou/uL (4.0-11.0)
[2020-12-28 04:58] LABS: ALBUMIN 2.4 g/dL (3.4-5.0); MAGNESIUM 2.3 mg/dL (1.8-2.4); POTASSIUM 4.5 mmol/L (3.5-5.1); TOTAL BILIRUBIN 0.2 mg/dL (<0.1-1.0); TOTAL PROTEIN 5.4 g/dL (6.4-8.2)
[2020-12-28 05:09] LABS: CREATININE 6.6 mg/dL (0.6-1.3)
[2020-12-28] MEDS ORDERED: ANCEF 1GM1 GM/50 M2 IV ×2 (06:59)
[2020-12-28 08:20] VITALS: BP 160/101
--- NOTE | 2020-12-28 09:40 | CON ---
[address] [address] CONSULTATION Name: EMMA BUTTERFIELD Room: [address] IN M.R.#: [id number] Admission: 12/23/20 Attend Phys: Angie Dozier MD Discharge: Date of : 82 Report #: [id number] THIS REPORT FOR: cc: CAROL VILLEGAS KEVIN ~ Blick, David R. MD [facility] DATE OF SERVICE: 12/28/2020 CARDIOLOGY CONSULTATION HISTORY OF PRESENT ILLNESS: The patient is a 40-year-old single white male who I was asked to see in the hospital today after he complained of chest pain. The patient has an extensive and complicated past medical history. He has a long history of IV drug abuse including heroin. He has also been an abuser of cocaine in the past, both smoking it and snorting. He currently is in rehabilitation. He has never been incarcerated. He is not very active at this time. He developed end-stage renal disease and has been on dialysis since 2015. He was told that he had nephrotic syndrome. He has had several grafts in both arms in the past that have been nonfunctional. He recently had a temporary dialysis catheter. Recently, he noticed some smell coming from the catheter, came to the hospital and the catheter was felt to be infected. He had removal of the dialysis catheter and had a new temporary dialysis catheter placed. He apparently was bacteremic. However, he denied any fever, chills, blurred vision, abdominal pain, rash. Yesterday, he underwent a transesophageal echocardiogram to evaluate for vegetations. The echocardiogram showed normal left ventricular function and chamber size. There was no evidence of shunt. There were no significant valvular abnormalities. No valvular vegetations were noted. The patient does have a long history of intermittent chest burning. It usually occurs after food and when he becomes nervous. He does a lot of belching. Occasionally goes up to his throat. He denies exertional chest tightness. He does get short of breath when he exerts himself. He has occasional episodes when her heart rate will increase and he was recently started on carvedilol. PAST MEDICAL HISTORY: He has had no other major surgical procedures. He does have a history of hypertension, but there is no history of diabetes. CURRENT MEDICATIONS: Consist of naloxone for narcotic withdrawal and folic acid. ALLERGIES: HE HAS AN ALLERGY TO HYDROCODONE, PENICILLIN, SULFA DRUGS, VANCOMYCIN. SOCIAL HISTORY: He is engaged, lives here in 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 He smokes half pack of cigarettes a day. No alcohol abuse. REVIEW OF SYSTEMS: No history of stroke, asthma, liver disease, cancer, chronic skin condition. PHYSICAL EXAMINATION: GENERAL: Revealed a young male, appeared in no distress. VITAL SIGNS: He had a blood pressure of 140/80, pulse is 80. He is afebrile. HEENT: He was anicteric. Conjunctivae pink. No conjunctival hemorrhages were noted. Mucous membranes were moist. NECK: Veins do not appear distended. CHEST: Clear to auscultation. CARDIOVASCULAR: Regular rate and rhythm, grade 2 systolic ejection murmur. No rub. ABDOMEN: Soft. No splenomegaly was felt. EXTREMITIES: Had no edema. Posterior tibial pulse 2+ bilaterally. No splinter hemorrhages were noted. RADIOLOGICAL DATA: His ECG showed a sinus rhythm. There was no significant ST or T-wave changes. The patient had a portable chest x-ray on admission that showed normal heart size, clear lung gonzalez. LABORATORY DATA: Sodium 138, creatinine 6.6. Liver function studies were normal. Albumin 2.4. Troponin 0.06. BNP 9714. His white blood cell count 2.3, hemoglobin 8.9, platelet count 75,000. IMPRESSION AND RECOMMENDATIONS: 1. Chest pain. Suspect noncardiac. Suspect gastrointestinal. Recommend no further cardiac evaluation. 2. Palpitations. The patient has been on a monitored bed and no arrhythmias have been noted. Recommend no further cardiac evaluation. The patient has been on a beta britney. 3. End-stage renal disease, on hemodialysis. 4. Recent removal of an infected shunt. 5. Tobacco abuse. 6. History of IV drug abuse. 7. Pancytopenia. No recent bleeding. <ELECTRONICALLY SIGNED> By: Sergo Araiza MD, [facility] 12/28/20 0940 0851 [id number] Araiza MD, FAC /nt
[2020-12-28 11:08] VITALS: BP 160/101
[2020-12-28 11:52] VITALS: BP 160/101
== END 2020-12-28 11:50 | disposition home or self-care (01) | DRG 314 ==
LOC: M.ERS 16:16 → M.2W 17:20 → M.TBA-ER 17:20 → M.2W 19:10
PROVIDERS: Family Medicine; Internal Medicine; Internal Medicine Nephrology; ADMIT Internal Medicine; ATTEND Internal Medicine
DX: T82.7XXA Infection and inflammatory reaction due to other cardiac and vascular devices, implants and grafts, initial encounter (principal); N18.6 End stage renal disease; D61.818 Other pancytopenia; I12.0 Hypertensive chronic kidney disease with stage 5 chronic kidney disease or end stage renal disease; Z20.822 Contact with and (suspected) exposure to COVID-19; G89.29 Other chronic pain; M54.9 Dorsalgia, unspecified; F41.9 Anxiety disorder, unspecified; E11.22 Type 2 diabetes mellitus with diabetic chronic kidney disease; F17.210 Nicotine dependence, cigarettes, uncomplicated; F43.9 Reaction to severe stress, unspecified; D63.1 Anemia in chronic kidney disease; Z88.6 Allergy status to analgesic agent; Z91.14 Patient's other noncompliance with medication regimen; Z79.891 Long term (current) use of opiate analgesic; Z88.1 Allergy status to other antibiotic agents; Z88.0 Allergy status to penicillin; Y83.8 Other surgical procedures as the cause of abnormal reaction of the patient, or of later complication, without mention of misadventure at the time of the procedure; Y92.89 Other specified places as the place of occurrence of the external cause

== ENCOUNTER → 2020-12-31 | Outpatient (CLI) | payer MEDICARE, MEDICAID ==
[~2020-12-31] VITALS: Ht 167.6 cm; Wt 65.8 kg
[~2020-12-31] MED LIST changes: +ANCEF 1GM1 GM/50 M2 IV; +COREG6.25 MG PO; +VITAMIN D-40010 MCG PO
[2020-12-31 09:34] VITALS: BP 170/100
[2020-12-31 11:40] VITALS: BP 163/107
[2020-12-31 11:56] VITALS: BP 162/103
== END | disposition home or self-care (01) ==
LOC: M.INT 09:00
PROVIDERS: ATTEND Internal Medicine
DX: Z45.2 Encounter for adjustment and management of vascular access device (principal); I12.0 Hypertensive chronic kidney disease with stage 5 chronic kidney disease or end stage renal disease; N18.6 End stage renal disease; M54.5 Low back pain; G89.29 Other chronic pain; F17.210 Nicotine dependence, cigarettes, uncomplicated; F41.9 Anxiety disorder, unspecified; Z98.890 Other specified postprocedural states; Z79.899 Other long term (current) drug therapy; Z88.0 Allergy status to penicillin; Z88.6 Allergy status to analgesic agent; Z99.2 Dependence on renal dialysis

== ENCOUNTER 2021-01-27 21:01 | Emergency (ER) | payer MEDICARE, MEDICAID ==
[~2021-01-27] VITALS: Ht 167.6 cm; Wt 68.0 kg
[2021-01-27 21:30] VITALS: BP 191/123
== END 2021-01-27 21:30 | disposition left against medical advice (07) ==
LOC: M.ERS 21:01
DX: Z53.21 Procedure and treatment not carried out due to patient leaving prior to being seen by health care provider (principal)

== ENCOUNTER 2021-03-10 19:29 | Inpatient (IN) | payer MEDICARE, MEDICAID ==
[~2021-03-10] VITALS: Ht 167.6 cm; Wt 71.0 kg
[~2021-03-10 19:29] MED LIST changes: +ANCEF 1GM1 GM/50 M1 IVPB; +SUBOXONE 2 MG-1 EAC1 SUBLING
[2021-03-10 19:36] VITALS: BP 188/112
[2021-03-10] MEDS ORDERED: ZYRTEC10 M5 PO (19:46)
[2021-03-10] MEDS ORDERED: CALCIUM ACETAT667 MG PO (19:47)
[2021-03-10 19:58] LABS: ABSOLUTE BASOPHILS 0.1 thou/uL (0.0-0.2); ABSOLUTE EOSINOPHILS 0.2 thou/uL (0.0-0.7); ABSOLUTE LYMPHOCYTES 1.3 thou/uL (0.8-5.3); ABSOLUTE MONOCYTES 0.2 thou/uL (0.0-1.2); ABSOLUTE NEUTROPHILS 3.4 thou/uL (1.6-8.1); BASOPHILS 1.1 %; HEMATOCRIT 20.7 % (42.0-52.0); HEMOGLOBIN 7.1 gm/dL (14.0-18.0); LYMPHOCYTES 25.1 %; MCH 31.4 pg (26.0-34.0); MCHC 34.2 g/dL (28.0-37.0); MCV 91.6 fL (80.0-100.0); MONOCYTES 3.7 %; MPV 7.9 fl. (7.2-11.1); NUCLEATED RBCS 0 /100WBC; PLATELET COUNT* 109 thou/uL (150-400); POLYS 67.1 %; RBC 2.26 mil/uL (4.50-6.00); RDW-CV 14.4 % (10.5-14.5); WBC 5.1 thou/uL (4.0-11.0)
[2021-03-10 20:06] LABS: CALCIUM 7.9 mg/dL (8.5-10.1); CREATININE 22.5 mg/dL (0.6-1.3); POTASSIUM 4.8 mmol/L (3.5-5.1)
[2021-03-10 20:08] LABS: MAGNESIUM 2.7 mg/dL (1.8-2.4); TOTAL BILIRUBIN 0.4 mg/dL (<0.1-1.0); TOTAL PROTEIN 6.9 g/dL (6.4-8.2)
[2021-03-10 22:20] VITALS: BP 172/97
[2021-03-10 22:33] VITALS: BP 167/99
[2021-03-11 03:45] VITALS: BP 181/115
[2021-03-11] MEDS ORDERED: SUBOXONE 8 MG-1 EAC3 SUBLING (03:48)
[2021-03-11] MEDS ORDERED: RENAPLEX-D TAB1 EACH PO (03:52)
[2021-03-11 07:15] VITALS: BP 177/111
[2021-03-11 07:50] VITALS: BP 178/104
--- NOTE | 2021-03-11 10:33 | EKG ---
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 : 1980 Requested By: Lilliam Rome Order Number: [id number] MD: Sergo Araiza Measurements Intervals [place] Rate: 91 P: 76 VA: 176 QRS: 76 QRSD: 107 T: 119 QT: 404 QTc: 498 Interpretive Statements Sinus rhythm Nonspecific T abnormalities, lateral leads Borderline prolonged QT interval Baseline wander in lead(s) V5 Compared to ECG 02/02/2021 13:55:32 T-wave abnormality now present ST (T wave) deviation now present Electronically Signed On 03-11-2021 10:33:15 CDT by Sergo Araiza [email or web address] <ELECTRONICALLY SIGNED> By: Sergo Araiza MD, [facility] 03/11/21 1033 37 37 Sergo Araiza MD, [facility] /EPI
[2021-03-11 16:10] VITALS: BP 151/88
--- NOTE | 2021-03-14 10:21 | CON ---
[address] [address] CONSULTATION Name: EMMA BUTTERFIELD Room: [address] M.R.#: [id number] Admission: 03/11/21 Attend Phys: Zara Chow Discharge: 03/11/21 Date of : 82 Report #: [id number] THIS REPORT FOR: cc: CAROL VILLEGAS,CAROL Carranza,Basilio Teran MD ~ DOC #: [id number] Basilio Carranza MD DATE OF CONSULTATION: 03/11/2021 REFERRING PHYSICIAN: Dr. Vyas. REASON FOR CONSULTATION: Assistance in providing dialysis. HISTORY OF PRESENT ILLNESS: The patient is a 40-year-old man with medical history significant for methamphetamine abuse, end-stage renal disease, anemia, he presented to the hospital with complaints of not feeling well, edema, shortness of breath, was found to be very uremic due to noncompliance to his dialysis regimen. His last dialysis was several weeks ago. His creatinine was 22.5, BUN was 110. He also currently in a state of methamphetamine abuse. SOCIAL HISTORY: Positive for methamphetamine abuse. FAMILY HISTORY: Positive for hypertension. REVIEW OF SYSTEMS: Positive for nausea and edema of the whole body. PHYSICAL EXAMINATION: GENERAL: Examined on dialysis. VITAL SIGNS: Blood pressure 178/104, heart rate 85, afebrile. HEENT: Pupils are round. NECK: Fatty. Dialysis via right internal jugular vein tunneled dialysis catheter. LUNGS: Decreased air movements. ASSESSMENT: 1. End-stage renal disease. 2. Noncompliance with dialysis. 3. Methamphetamine abuse. 4. Hypertension. 5. Anemia. PLAN: Due to 2-week absence of dialysis, we will do him daily for now. We [address] [address] CONSULTATION Name: BUTTERFIELDEMMA Room: [address]#: [id number] Admission: 03/11/21 Attend Phys: Zara Chow Discharge: 03/11/21 Date of : 82 Report #: [id number] dialyzed him for 2-1/2 hours today and 3 hours tomorrow including the half hours day after tomorrow. I will not be surprised if he leaves the hospital against medical advice. Basilio Carranza MD JONATHAN <ELECTRONICALLY SIGNED> By: Basilio Carranza MD 03/14/21 1021 1042 1400Basilio Carranza MD /nt
== END 2021-03-11 16:41 | disposition left against medical advice (07) | DRG 304 ==
LOC: M.ERS 19:29 → M.TBA-ER 20:20 → M.ERS 20:20 → M.TBA-ER 20:40 → M.2W 21:34
PROVIDERS: Emergency Medicine; ADMIT Internal Medicine; ATTEND Internal Medicine
PROC: 5A1D70Z Performance of Urinary Filtration, Intermittent, Less than 6 Hours Per Day (ICD-10-PCS; principal; 2021-03-11)
DX: I16.1 Hypertensive emergency (principal); N18.6 End stage renal disease; F15.20 Other stimulant dependence, uncomplicated; I12.0 Hypertensive chronic kidney disease with stage 5 chronic kidney disease or end stage renal disease; F41.9 Anxiety disorder, unspecified; G89.29 Other chronic pain; D64.9 Anemia, unspecified; M54.9 Dorsalgia, unspecified; Z20.822 Contact with and (suspected) exposure to COVID-19; Z88.1 Allergy status to other antibiotic agents; Z99.2 Dependence on renal dialysis; Z88.5 Allergy status to narcotic agent; Z88.0 Allergy status to penicillin; Z88.2 Allergy status to sulfonamides; Z88.8 Allergy status to other drugs, medicaments and biological substances; Z79.899 Other long term (current) drug therapy; Z91.15 Patient's noncompliance with renal dialysis; Z53.29 Procedure and treatment not carried out because of patient's decision for other reasons

== ENCOUNTER 2021-05-26 02:28 | Emergency (ER) | payer MEDICARE, MEDICAID ==
[~2021-05-26] VITALS: Ht 170.2 cm; Wt 63.5 kg
[~2021-05-26 02:28] MED LIST changes: +RENAPLEX-D TAB1 EACH PO
[2021-05-26] MEDS ORDERED: HYDRALAZINE HC100 MG PO (02:41)
[2021-05-26 03:01] LABS: URINE BILIRUBIN NEGATIVE (Negative); URINE BLOOD 3+ (Negative); URINE CLARITY CLEAR; URINE COLOR YELLOW; URINE GLUCOSE-RANDOM 2+ (Negative); URINE KETONES NEGATIVE (Negative); URINE LEUKOCYTES-REFLEX NEGATIVE (Negative); URINE NITRITE-REFLEX NEGATIVE (Negative); URINE PROTEIN 3+ (Negative); URINE UROBILINOGEN 0.2 E.U./dl (0.2-1.0)
[2021-05-26 03:08] LABS: AMP/METHAMP Negative (Negative); BARBITURATES Negative (Negative); BENZODIAZEPINES Negative (Negative); COCAINE Negative (Negative); METHADONE Negative (Negative); OPIATES Negative (Negative); PCP Negative (Negative); THC Negative (Negative)
[2021-05-26 03:17] LABS: CASTS None Seen /LPF (None Seen); SQUAMOUS 0-3 Few /LPF (0-3)
[2021-05-26 03:18] LABS: BACTERIA-REFLEX 1-9 Few /HPF (None Seen); CRYSTALS None Seen /LPF (None Seen); URINE RBC >20 Many /HPF (0-2); URINE WBC-REFLEX 0-5 Rare /HPF (0-5)
[2021-05-26 03:27] VITALS: BP 144/88
== END 2021-05-26 03:27 | disposition left against medical advice (07) ==
LOC: M.ERS 02:28
PROVIDERS: Personal Emergency Response Attendant
DX: R11.2 Nausea with vomiting, unspecified (principal); R50.9 Fever, unspecified; Z53.21 Procedure and treatment not carried out due to patient leaving prior to being seen by health care provider

== ENCOUNTER → 2021-07-02 | Outpatient (CLI) | payer MEDICARE, MEDICAID ==
[~2021-07-02] MED LIST changes: +CLONIDINE HCL0.1 M1 PO; +GABAPENTIN 100100 MG PO; +HYDRALAZINE 2525 MG PO; +HYDRALAZINE HC100 MG PO; +LIDOPATCH1 EACH TOP
[2021-07-02 11:51] LABS: CALCIUM 8.7 mg/dL (8.5-10.1); CREATININE 18.7 mg/dL (0.6-1.3); POTASSIUM 4.8 mmol/L (3.5-5.1)
== END ==
LOC: M.LAB 11:20
PROVIDERS: ATTEND Internal Medicine Nephrology
DX: N18.6 End stage renal disease (principal)

== ENCOUNTER 2021-07-12 18:20 | Observation (INO) | payer MEDICARE, MEDICAID ==
[~2021-07-12] VITALS: Ht 170.2 cm; Wt 72.6 kg
[2021-07-12 18:34] VITALS: BP 168/78
[2021-07-12 18:47] LABS: ABSOLUTE EOSINOPHILS 0.1 thou/uL (0.0-0.7); ABSOLUTE LYMPHOCYTES 0.3 thou/uL (0.8-5.3); ABSOLUTE MONOCYTES 0.2 thou/uL (0.0-1.2); BASOPHILS 0.5 %; EOSINOPHILS 3.8 %; LYMPHOCYTES 8.7 %; MCH 31.5 pg (26.0-34.0); MCHC 34.2 g/dL (28.0-37.0); MCV 92.2 fL (80.0-100.0); MONOCYTES 6.6 %; MPV 6.8 fl. (7.2-11.1); NUCLEATED RBCS 0 /100WBC; PLATELET COUNT* 135 thou/uL (150-400); POLYS 80.4 %; RBC 2.03 mil/uL (4.50-6.00); RDW-CV 19.8 % (10.5-14.5); WBC 3.7 thou/uL (4.0-11.0)
[2021-07-12 18:52] LABS: HEMATOCRIT 18.7 % (42.0-52.0); HEMOGLOBIN 6.4 gm/dL (14.0-18.0)
[2021-07-12 18:54] LABS: CALCIUM 7.9 mg/dL (8.5-10.1); CREATININE 6.8 mg/dL (0.6-1.3); POTASSIUM 3.8 mmol/L (3.5-5.1)
[2021-07-12 18:59] LABS: ALBUMIN 3.1 g/dL (3.4-5.0); TOTAL BILIRUBIN 0.4 mg/dL (<0.1-1.0); TOTAL PROTEIN 6.6 g/dL (6.4-8.2)
[2021-07-12 19:43] LABS: NT-PRO BRAIN NAT PEPTIDE > 35000 pg/mL (<300)
[2021-07-12 20:25] VITALS: BP 145/88
[2021-07-12 23:10] VITALS: BP 147/88; BP 150/92; BP 162/95; BP 169/97
[2021-07-13 00:45] VITALS: BP 162/95
[2021-07-13 04:49] LABS: INR 1.1; PROTIME 11.2 Seconds (9.20-11.50)
--- NOTE | 2021-07-13 05:53 | NUR ---
PT ARRIVE TO THE UNIT AT 2100. A&O X 4. NO C/O PAIN. RA. 1 UNIT OF BLOOD TRANSFUSED. UP INDEPENDENTLY IN ROOM. PT EITHER SLEEPING OR EATING. CALL LIGHT WITHIN REACH. WILL CONTINUE TO MONITOR.
[2021-07-13 07:32] LABS: HEMATOCRIT 21.8 % (42.0-52.0); HEMOGLOBIN 7.5 gm/dL (14.0-18.0)
[2021-07-13 07:54] VITALS: BP 174/96
--- NOTE | 2021-07-13 08:49 | NUR ---
ASSUMED CARE OF PT THIS AM AROUND 0715- HYDROMETEOROLOGICAL TECHNICIAN IN PLACE ORDERED, TRACING SR- UPON ASSESSMENT PT NOTED TO BE SITTING UP IN BED- PT A&O X4, WITHDRAWN- CONT OF B/B- UP AD-AVERY IN ROOM, STEADY GAIT NOTED- LCTA, DYSPNEA NOTED ON EXERTION- VSS, O2 SAT 99% ON RA- ABD SOFT/ROUND/NON-TENDER, BS X4 QUADS- LAST BM REORTED 07/12/21- IV NOTED TO LEFT AC INTACT AND SL- RUE FISTULA NOTED WITH POSITIVE BRUIT/THRILL- GOOD PO INTAKE NOTED THIS AM WITH BREAKFAST- DIALYISIS PLANNED THIS SHIFT- PT REPORTS PAIN 05/04 TO BACK, REPOSITIONING/DARK QUEIT ENVIRONMENT IN PLACE- CALL LIGHT AND PERSONAL BELONGINGS WITH IN REACH- PT MAKES NEEDS KNOWN- ALL NEEDS MET AT THIS TIME
[2021-07-13 12:09] VITALS: BP 150/91
[2021-07-13 18:12] VITALS: BP 150/91
[2021-07-13 18:47] VITALS: BP 150/91
--- NOTE | 2021-07-15 11:33 | EKG ---
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 : 1980 Requested By: Chary Rome Order Number: [id number] MD: Torsten Mejia Measurements Intervals [place] Rate: 90 P: 71 LA: 169 QRS: 88 QRSD: 96 T: 43 QT: 400 QTc: 490 Interpretive Statements Sinus rhythm Probable left ventricular hypertrophy Borderline prolonged QT interval Compared to ECG 06/03/2021 22:51:57 No significant changes Electronically Signed On 07-15-2021 11:33:22 CDT by Torsten Mejia [email or web address] <ELECTRONICALLY SIGNED> By: Torsten Mejia MD, [facility] 07/15/21 1133 07 190 Torsten Mejia MD, [facility] /EPI
--- NOTE | 2021-07-18 09:46 | CON ---
[address] [address] CONSULTATION Name: EMMA BUTTERFIELD Room: [address] Carina Almeida#: [id number] Admission: 07/12/21 Attend Phys: Zara Suggs Discharge: 07/13/21 Date of : 82 Report #: [id number] THIS REPORT FOR: cc: CAROL VILLEGAS,CAROL Carranza,Basilio Teran MD ~ DATE OF CONSULTATION: 07/13/2021 REQUESTING PHYSICIAN: Dr. Florian. REASON FOR CONSULTATION: Assist in providing dialysis. HISTORY OF PRESENT ILLNESS: The patient is a 40-year-old gentleman with medical history significant for end-stage renal disease, admitted to the hospital for anemia. It was found that his hemoglobin was 6.4. He was sent here from dialysis unit for transfusion. PAST MEDICAL HISTORY: 1. End-stage renal disease. 2. Anemia. 3. History of chronic anxiety. FAMILY HISTORY: No history of renal disease. SOCIAL HISTORY: No alcohol abuse. No use of drugs. PHYSICAL EXAMINATION: GENERAL: Examined on dialysis. VITAL SIGNS: His blood pressure 150/90, heart rate 87, afebrile. HEENT: Pupils are round. NECK: Supple. LUNGS: Decreased air movements. CARDIOVASCULAR: Regular rate. ABDOMEN: Soft. ASSESSMENT: 1. End-stage renal disease. 2. Fluid retention. 3. Anemia. PLAN: 1. Transfuse. 2. Dialyze. [facility] [address] [place] [address] CONSULTATION Name: EMMA BUTTERFIELD Room: [address] Carina Almeida#: [id number] Admission: 07/12/21 Attend Phys: Zara Suggs Discharge: 07/13/21 Date of : 82 Report #: [id number] Overall, doing better. <ELECTRONICALLY SIGNED> By: Basilio Carranza MD 07/18/2146 1345 2008Ajoana Carranza MD /nt
== END 2021-07-13 18:47 | disposition home or self-care (01) ==
LOC: M.ERS 18:20 → M.TBA-ER 19:17 → M.ORTHSURG 20:46 → M.2W 20:50
PROVIDERS: Physician Assistant; ADMIT Internal Medicine; ATTEND Internal Medicine
DX: D50.9 Iron deficiency anemia, unspecified (principal); Z20.822 Contact with and (suspected) exposure to COVID-19; G89.29 Other chronic pain; M54.9 Dorsalgia, unspecified; F41.9 Anxiety disorder, unspecified; N17.9 Acute kidney failure, unspecified; N18.6 End stage renal disease; F17.210 Nicotine dependence, cigarettes, uncomplicated; Z88.0 Allergy status to penicillin; Z88.5 Allergy status to narcotic agent; Z79.899 Other long term (current) drug therapy; Z88.2 Allergy status to sulfonamides; Z99.2 Dependence on renal dialysis

== ENCOUNTER 2021-11-17 19:33 | Emergency (ER) | payer MEDICARE, MEDICAID ==
[~2021-11-17] VITALS: Ht 170.2 cm; Wt 83.0 kg
[2021-11-17] MEDS ORDERED: PERCOCET 5-3251 EACH PO (21:13)
[2021-11-17] MEDS ORDERED: NORFLEX100 MG PO (21:13)
[2021-11-17 21:32] VITALS: BP 177/100
--- NOTE | 2021-11-18 14:09 | EKG ---
[place] [address] ELECTROCARDIOGRAM REPORT Name: EMMA BUTTERFIELD Room: 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: [place] : 1980 Requested By: Elinor Martin Order Number: [id number] MD: Torsten Mejia Measurements Intervals [place] Rate: 71 P: 79 [place]: 184 QRS: 62 QRSD: 122 T: 91 QT: 468 QTc: 509 Interpretive Statements Sinus rhythm Probable left atrial enlargement Nonspecific intraventricular conduction delay Nonspecific T abnormalities, lateral leads Compared to ECG 07/12/2021 19:08:18 Intraventricular conduction delay now present T-wave abnormality now present Electronically Signed On 11-18-2021 14:08:55 DRUM FILLER by Torsten Mejia [email or web address] <ELECTRONICALLY SIGNED> By: Torsten Mejia MD, [facility] 11/18/21 1408 37 37 Torsten Mejia MD, [facility] /EPI
== END 2021-11-17 21:33 | disposition home or self-care (01) ==
LOC: M.ERS 19:33
DX: M62.830 Muscle spasm of back (principal); F41.9 Anxiety disorder, unspecified; N18.6 End stage renal disease; F17.210 Nicotine dependence, cigarettes, uncomplicated; Z79.899 Other long term (current) drug therapy; Z88.5 Allergy status to narcotic agent; Z88.0 Allergy status to penicillin; Z88.2 Allergy status to sulfonamides; Z88.8 Allergy status to other drugs, medicaments and biological substances